=== PATIENT | male | born 1955 | race Two or more races ===

== ENCOUNTER 2017-03-24 09:46 | Emergency (ER) | payer MEDICARE ==
--- NOTE | 2017-03-24 10:19 | ER Document Report ---
ED General - General Chief Complaint: Scrotal Pain, Acute Onset Stated Complaint: LEFT TESTICAL PAIN Time Seen by Provider: 03/24/17 10:07 Mode of Arrival: Ambulatory Information source: Patient Notes: 61 yr old male presents with complaitns of left scrotal pain swelling of 1 week duration. pt denies any fevers or chills. denies any flank pain . pt notes he is not sexually active TRAVEL OUTSIDE OF THE [place] IN LAST 30 DAYS: No - HPI Onset: Last week Onset/Duration: Persistent Quality of pain: Achy Severity: Mild Pain Level: 2 Associated symptoms: Other Exacerbated by: Other Relieved by: Denies Similar symptoms previously: No Recently seen / treated by doctor: No - Related Data Allergies/Adverse Reactions: cortisone [Cortisone] Allergy (Verified 03/24/17 10:10) Sulfa (Sulfonamide Antibiotics) Allergy (Verified 03/24/17 10:10) Past Medical History - Social History Smoking Status: Never Smoker Cigarette use (# per day): No Chew tobacco use (# tins/day): No Smoking Education Provided: No Frequency of alcohol use: Rare Drug Abuse: None Family History: Reviewed & Not Pertinent Patient has suicidal ideation: No Patient has homicidal ideation: No - Past Medical History Cardiac Medical History: Reports: Hx Hypertension Endocrine Medical History: Reports: Hx Diabetes Mellitus Type 1 Renal/ Medical History: Denies: Hx Peritoneal Dialysis Past Surgical History: Reports: Hx Orthopedic Surgery - Spinal fusion, Hx Vascular Surgery - Immunizations Hx Diphtheria, Pertussis, Tetanus Vaccination: Yes Review of Systems - Review of Systems Notes: REVIEW OF SYSTEMS: CONSTITUTIONAL : Denies fever, chills, or sweats. Denies recent illness. EENT: Denies eye, ear, throat, or mouth pain or symptoms. Denies nasal or sinus congestion or discharge. Denies throat, tongue, or mouth swelling or difficulty swallowing. CARDIOVASCULAR: Denies chest pain. Denies palpitations or racing or irregular heart beat. Denies ankle edema. RESPIRATORY: Denies cough, cold, or chest congestion. Denies shortness of breath, difficulty breathing, or wheezing. GASTROINTESTINAL: Denies abdominal pain or distention. Denies nausea, vomiting , or diarrhea. Denies blood in vomitus, stools, or per rectum. Denies black, tarry stools. Denies constipation. Admits to testicular pain GENITOURINARY: Denies difficulty urinating, painful urination, burning, frequency, blood in urine, or discharge. MUSCULOSKELETAL: Denies back or neck pain or stiffness. Denies joint pain or swelling. SKIN: Denies rash, lesions or sores. HEMATOLOGIC : Denies easy bruising or bleeding. LYMPHATIC: Denies swollen, enlarged glands. NEUROLOGICAL: Denies confusion or altered mental status. Denies passing out or loss of consciousness. Denies dizziness or lightheadedness. Denies headache. Denies weakness or paralysis or loss of use of either side. Denies problems with gait or speech. Denies sensory loss, numbness, or tingling. Denies seizures. PSYCHIATRIC: Denies anxiety or stress. Denies depression, suicidal ideation, or homicidal ideation. ALL OTHER SYSTEMS REVIEWED AND NEGATIVE. Dictation was performed using [email or web address] voice recognition software PHYSICAL EXAMINATION: GENERAL: Well-appearing, well-nourished and in no acute distress. HEAD: Atraumatic, normocephalic. EYES: Pupils equal round and reactive to light, extraocular movements intact, sclera anicteric, conjunctiva are normal. ENT: Nares patent, oropharynx clear without exudates. Moist mucous membranes. NECK: Normal range of motion, supple without lymphadenopathy LUNGS: Breath sounds clear to auscultation bilaterally and equal. No wheezes rales or rhonchi. HEART: Regular rate and rhythm without murmurs ABDOMEN: Soft, nontender, nondistended abdomen. No guarding, no rebound. No masses appreciated. There is tenderness on palpation of the left scrotal region with edema, cremaster reflexes intact bilateral Musculoskeletal: Normal range of motion, no pitting or edema. No cyanosis. NEUROLOGICAL: Cranial nerves grossly intact. Normal speech, normal gait. Normal sensory, motor exams PSYCH: Normal mood, normal affect. SKIN: Warm, Dry, normal turgor, no rashes or lesions noted. Physical Exam - Vital signs Vitals: Temp Pulse Resp BP Pulse Ox 98.4 F 93 23 H 112/71 98 03/24/17 09:49 03/24/17 09:49 03/24/17 09:49 03/24/17 09:49 03/24/17 09:49 Course - Re-evaluation Re-evalutation: 03/24/17 10:30 Patient will be sent emergently for an ultrasound, urinalysis pending 03/24/17 12:08 Ultrasound is consistent with epididymitis, debris is noted on ultrasound. Patient will be started on antibiotics otherwise well-appearing no distress I will give follow-up with urology After performing a Medical Screening Examination, I estimate there is LOW risk for ACUTE APPENDICITIS, BOWEL OBSTRUCTION, ACUTE CHOLECYSTITIS, PERFORATED DIVERTICULITIS, INCARCERATED HERNIA, PANCREATITIS, or PERFORATED ULCER, thus I consider the discharge disposition reasonable. Also, there is no evidence or peritonitis, sepsis, or toxicity. I have reevaluated this patient multiple times and no significant life threatening changes are noted. The patient and I have discussed the diagnosis and risks, and we agree with discharging home with close follow-up with the understanding that symptoms and presentations can change. We also discussed returning to the Emergency Department immediately if new or worsening symptoms occur. We have discussed the symptoms which are most concerning (e.g., bloody stool, fever, changing or worsening pain, intractable vomiting - standard verbal up date) that necessitate immediate return. - Vital Signs Vital signs: Temp Pulse Resp BP Pulse Ox 98.4 F 93 23 H 112/71 98 03/24/17 09:49 03/24/17 09:49 03/24/17 09:49 03/24/17 09:49 03/24/17 09:49 - Laboratory Laboratory results interpreted by me: 03/24/17 11:20 Urine Protein 30 H Urine Glucose (UA) >=500 H Urine Blood MODERATE H - Diagnostic Test Radiology reviewed: Image reviewed, Reports reviewed - Report given to patient Discharge - Discharge Clinical Impression: Epididymitis, Scrotal pain Condition: Stable Disposition: HOME, SELF-CARE Instructions: Epididymitis ([facility]) Prescriptions: Hydrocodone/Acetaminophen [[place] 5-325 mg Tablet] 1 tab PO Q6 #14 tablet Levofloxacin [Levaquin 750 mg Tablet] 750 mg PO DAILY #14 tablet Referrals: VIGNESH MEADE MD [Primary Care Provider] - Follow up as needed LUCINDA DUNN MD [ACTIVE STAFF] - Follow up tomorrow
[2017-03-24] MEDS ORDERED: HYDROCODONE/ACETAMINOPHEN 5-325 MG TABLET PO ONE (10:20)
--- NOTE | 2017-03-24 11:49 | RADIOLOGY REPORT (SQ) ---
EXAM DESCRIPTION: U/S SCROTUM W/DOPPLER COMPLETED DATE/TIME: 03/24/2017 11:19 am REASON FOR STUDY: testicular pain COMPARISON: None. TECHNIQUE: Static and realtime hall scale imaging of the scrotum and testes. Selected color Doppler and spectral images recorded to document blood flow. LIMITATIONS: None. FINDINGS: RIGHT: TESTICLE: Normal size, 4.1 x 3.1 x 2.9 cm in size. Normal echotexture. Normal blood flow. No mass. EPIDIDYMIS: Epididymal head is normal aside from a 4 mm cyst. The epididymal tail is enlarged and he terogeneous question epididymitis. HYDROCELE OR VARICOCELE: Large right hydrocele. No varicocele HERNIA OR EXTRA-TESTICULAR MASS: No. OTHER: No other significant finding. LEFT: TESTICLE: Normal size, 3.5 x 2.8 x 3 cm in size. Normal echotexture. Normal blood flow. No mass. EPIDIDYMIS: Epididymal head is normal aside from a 4 mm cyst. The epididymal tail is enlarged and he terogeneous, question epididymitis. HYDROCELE OR VARICOCELE: Large left hydrocele. No varicocele HERNIA OR EXTRA-TESTICULAR MASS: No. OTHER: No other significant finding. IMPRESSION: Bilateral hydroceles Heterogeneous enlarged epididymal tails bilaterally, question epididymal inflammation/infection No ultrasound evidence of testicular torsion TECHNICAL DOCUMENTATION: JOB ID: [id number]- All Rights Reserved
[2017-03-24 11:58] LABS: APPEARANCE,URINE CLEAR; BILIRUBIN,URINE NEGATIVE (NEGATIVE); GLUCOSE, URINE >=500 mg/dL (NEGATIVE); KETONES,URINE NEGATIVE (NEGATIVE); LEUKOCYTE ESTERASE,URINE NEGATIVE (NEGATIVE); NITRITE,URINE NEGATIVE (NEGATIVE); PROTEIN,URINE 30 mg/dL (NEGATIVE); URINE SPECIFIC GRAVITY 1.028; UROBILINOGEN,URINE NEGATIVE mg/dL (<2.0)
[2017-03-24 12:17] VITALS: BP 127/74
[2017-03-24 14:31] LABS: CHLAM PCR NOT DETECTED (NOT DETECT)
== END 2017-03-24 12:15 | disposition home or self-care (01) ==
LOC: ER 09:46
DX: N45.1 Epididymitis (principal); N50.82 Scrotal pain; N50.89 Other specified disorders of the male genital organs
CPT/HCPCS: 99284; 81001; 87491; 87591; 76870; 93976; A9270

== ENCOUNTER 2018-07-12 13:45 | Emergency (ER) | payer MEDICARE ==
[2018-07-12] MEDS ORDERED: ASPIRIN 81 MG TABLET, CHEWABLE PO ONE (15:18)
--- NOTE | 2018-07-12 15:21 | ER Document Report ---
ED Medical Screen (RME) - General Chief Complaint: Chest Pain Stated Complaint: CHEST PAIN Time Seen by Provider: 07/12/18 15:09 Notes: 62-year-old male patient with hypertension, hyperlipidemia, insulin diabetes comes emerged from complaining of chest pain, difficulty breathing, dizzy sensation and left arm pain. He has been moving which involves moving furniture for the past few days. He did feel poorly "the other day", took 3 baby aspirin. He felt similarly unwell this morning and his gave him one baby aspirin at 8:30 AM. About 12:20 PM today, he developed a sternal squeezing chest discomfort going down the left arm. His gave him 1 of her nitroglycerin at 1230 it did not help. At 1245 he took an additional nitroglycerin without any change in symptoms. At that point they decided to come to the emergency room. He states the discomfort he has felt today comes and goes. He also reports feeling disoriented. Due to his past medical history and HPI, the charge nurse was contacted to get the patient a bed in the main ED as quickly as possible. I have greeted and performed a rapid initial assessment of this patient. A comprehensive ED assessment and evaluation of the patient, analysis of test results and completion of the medical decision making process will be conducted by additional ED providers. TRAVEL OUTSIDE OF THE [place] IN LAST 30 DAYS: No - Related Data Allergies/Adverse Reactions: cortisone [Cortisone] Allergy (Verified 07/12/18 13:49) Sulfa (Sulfonamide Antibiotics) Allergy (Verified 07/12/18 13:49) Past Medical History - Social History Chew tobacco use (# tins/day): No Frequency of alcohol use: Rare - Past Medical History Cardiac Medical History: Reports: Hx Hypertension Endocrine Medical History: Reports: Hx Diabetes Mellitus Type 1, Hx Diabetes Mellitus Type 2 Renal/ Medical History: Denies: Hx Peritoneal Dialysis Past Surgical History: Reports: Hx Orthopedic Surgery - Spinal fusion, Hx Vascular Surgery - Immunizations Hx Diphtheria, Pertussis, Tetanus Vaccination: Yes Physical Exam - Vital signs Vitals: Temp Pulse Resp BP Pulse Ox 98.1 F 80 16 123/69 97 07/12/18 14:09 07/12/18 14:09 07/12/18 14:09 07/12/18 14:09 07/12/18 14:09 Course - Vital Signs Vital signs: Temp Pulse Resp BP Pulse Ox 98.1 F 80 16 123/69 97 07/12/18 14:09 07/12/18 14:09 07/12/18 14:09 07/12/18 14:09 07/12/18 14:09 Doctor's Discharge - Discharge Referrals: VIGNESH MEADE MD [Primary Care Provider] - Follow up as needed
[2018-07-12 16:23] LABS: ABSOLUTE BASOPHILS # (AUTO) 0.1 10^3/uL (0.0-0.2); ABSOLUTE EOSINOPHILS # (AUTO) 0.1 10^3/uL (0.0-0.6); ABSOLUTE LYMPHOCYTES (AUTO) 1.5 10^3/uL (0.5-4.7); ABSOLUTE MONOCYTES (AUTO) 0.7 10^3/uL (0.1-1.4); ABSOLUTE NEUT (AUTO) 6.3 10^3/uL (1.7-8.2); BASOPHILS % (AUTO) 0.6 % (0-2); EOSINOPHILS % (AUTO) 0.6 % (0-6); HEMATOCRIT 43.4 % (37.9-51.0); HEMOGLOBIN 14.7 g/dL (13.5-17.0); LYMPHOCYTES % (AUTO) 17.3 % (13-45); MEAN CORPUSCULAR HEMOGLOBIN 28.8 pg (27.0-33.4); MEAN CORPUSCULAR HGB CONC 33.8 g/dL (32.0-36.0); MEAN CORPUSCULAR VOLUME 85 fl (80-97); PLATELET COUNT 261 10^3/uL (150-450); RED BLOOD COUNT 5.11 10^6/uL (4.35-5.55); RED CELL DISTRIBUTION WIDTH 13.9 % (11.5-14.0); SEGMENTED NEUTROPHILS % (AUTO) 73.5 % (42-78); TOTAL CELLS COUNTED % (AUTO) 100 %; WHITE BLOOD COUNT 8.6 10^3/uL (4.0-10.5)
[2018-07-12 16:31] LABS: APPEARANCE,URINE CLOUDY; BILIRUBIN,URINE NEGATIVE (NEGATIVE); COLOR,URINE YELLOW; GLUCOSE, URINE >=500 mg/dL (NEGATIVE); KETONES,URINE NEGATIVE (NEGATIVE); LEUKOCYTE ESTERASE,URINE SMALL (NEGATIVE); NITRITE,URINE NEGATIVE (NEGATIVE); PROTEIN,URINE 30 mg/dL (NEGATIVE); URINE SPECIFIC GRAVITY 1.022
--- NOTE | 2018-07-12 16:34 | RADIOLOGY REPORT (SQ) ---
EXAM DESCRIPTION: CHEST SINGLE VIEW COMPLETED DATE/TIME: 07/12/2018 4:21 pm REASON FOR STUDY: Chest pain COMPARISON: 12/02/2015. EXAM PARAMETERS: NUMBER OF VIEWS: One view. TECHNIQUE: Single frontal radiographic view of the chest acquired. RADIATION DOSE: NA LIMITATIONS: None. FINDINGS: LUNGS AND PLEURA: No acute infiltrates or effusions. MEDIASTINUM AND HILAR STRUCTURES: No masses. Contour normal. HEART AND VASCULAR STRUCTURES: The heart is normal. The pulmonary vasculature is normal. BONES: Postsurgical changes cervical spine. HARDWARE: None in the chest. OTHER: No other significant finding. IMPRESSION: NO ACUTE DISEASE. TECHNICAL DOCUMENTATION: JOB ID: [id number] [employer]- All Rights Reserved Reading location - IP/workstation name: [email or web address]
[2018-07-12 16:44] LABS: ALANINE AMINOTRANSFERASE 28 U/L (21-72); ALBUMIN 4.4 g/dL (3.5-5.0); ALKALINE PHOSPHATASE 79 U/L (38-126); ANION GAP 14 (5-19); ASPARTATE AMINO TRANSFERASE 33 U/L (17-59); BILIRUBIN,DIRECT 0.2 mg/dL (0.0-0.4); BILIRUBIN,TOTAL 0.6 mg/dL (0.2-1.3); BLOOD UREA NITROGEN 16 mg/dL (7-20); CALCIUM 9.8 mg/dL (8.4-10.2); CARBON DIOXIDE 28 mmol/L (22-30); CHLORIDE 101 mmol/L (98-107); CREATINE KINASE 594 U/L (55-170); GLUCOSE 83 mg/dL (75-110); POTASSIUM 4.4 mmol/L (3.6-5.0); SODIUM 142.5 mmol/L (137-145); TOTAL PROTEIN 7.6 g/dL (6.3-8.2)
[2018-07-12 16:56] LABS: CREATINE KINASE MB 6.56 ng/mL (<4.55)
[2018-07-12 17:02] LABS: TROPONIN I < 0.012 ng/mL
[2018-07-12] MEDS ORDERED: HEPARIN SOD (PORCINE) 1,000 UNIT/ML 10 ML VIAL IV ONE (17:05)
[2018-07-12] MEDS ORDERED: HEPARIN SODIUM,PORCINE/D5W 25,000 UNIT/250 ML RTUINJ IV PRN (17:05)
[2018-07-12] MEDS ORDERED: NITROGLYCERIN 2% OINTMENT 1 GM PACKET TP ONE (17:05)
--- NOTE | 2018-07-12 17:11 | ER Document Report ---
ED Cardiac - General Chief Complaint: Chest Pain Stated Complaint: CHEST PAIN Time Seen by Provider: 07/12/18 15:09 Notes: This is a 62-year-old male. Presents to the ED after 1 hour history of sudden onset of chest pressure, shortness of breath and diaphoresis. Patient was doing some heavy lifting. All of a sudden developed chest pain. Radiated to his left shoulder. Kinsey like he was going to throw up. His who has had a heart attack gave him some of her nitro. This seemed to help. The pain came back. She gave him another nitro. Patient decided he should probably come to the hospital to get checked out. Patient has obesity, history of hyperlipidemia as well as hypertension and diabetes. Recently started going to see her doctor again once he got on Medicare. Patient does not smoke but did smoke 20 years ago. TRAVEL OUTSIDE OF THE [place] IN LAST 30 DAYS: No - HPI Patient complains to provider of: Chest pain, Chest tightness, Shortness of breath Was the onset of pain: Sudden Quality of pain: Dull Chest pain radiation location: Left shoulder Severity now: Moderate Severity at worst: Severe Pain level currently: 1 Chest pain precipitating factors: Physical Exertion Cardiac risk factors: Diabetes, Hypertension, Dyslipidemia Associated symptoms: Diaphoresis, Dizziness, Jaw pain, Nausea/vomiting, Shortness of breath, Weakness Relieved by: NTG Similar symptoms previously: No Recently seen / treated by doctor: No - Related Data Allergies/Adverse Reactions: cortisone [Cortisone] Allergy (Verified 07/12/18 13:49) Sulfa (Sulfonamide Antibiotics) Allergy (Verified 07/12/18 13:49) Past Medical History - General Information source: Patient - Social History Smoking Status: Former Smoker Chew tobacco use (# tins/day): No Frequency of alcohol use: Rare Lives with: Spouse/Significant other Family History: Reviewed & Not Pertinent Patient has suicidal ideation: No Patient has homicidal ideation: No - Past Medical History Cardiac Medical History: Reports: Hx Hypertension Endocrine Medical History: Reports: Hx Diabetes Mellitus Type 1, Hx Diabetes Mellitus Type 2 Renal/ Medical History: Denies: Hx Peritoneal Dialysis Past Surgical History: Reports: Hx Orthopedic Surgery - Spinal fusion, Hx Vascular Surgery - Immunizations Hx Diphtheria, Pertussis, Tetanus Vaccination: Yes Review of Systems - Review of Systems Notes: Constitutional: denies: Chills, Diaphoresis, Fever, Malaise, Weakness EENT: denies: Eye discharge, Blurred vision, Tearing, Double vision, Nose congestion, Nose discharge, Throat swelling, Mouth pain Cardiovascular: It is complaining of chest pain, chest tightness, shortness of breath, lower extremity edema. Respiratory: denies: Cough, Hurts to breathe, Wheezing,. Does complain of shortness of breath Gastrointestinal: denies: Abdominal pain, Diarrhea, Nausea, Vomiting, Black stools, bright red blood in stool Genitourinary: denies: Burning, Dysuria, Discharge, Frequency, Flank pain, Hematuria Musculoskeletal: denies: Joint pain, Joint swelling, Muscle pain, Muscle stiffness, back pain Hematologic/Lymphatic: denies: Anemia, Easy bleeding, Easy bruising, Blood clots Neurological/Psychological: denies: Confusion, Dementia, Depression, Loss of consciousness Skin: No lesions, no masses, no skin breakdown, no abscesses Physical Exam - Vital signs Vitals: Temp Pulse Resp BP Pulse Ox 98.1 F 80 16 123/69 97 07/12/18 14:09 07/12/18 14:09 07/12/18 14:09 07/12/18 14:09 07/12/18 14:09 Interpretation: Normal - General General appearance: Appears well, Alert - HEENT Head: Normocephalic, Atraumatic Eyes: Normal Pupils: PERRL - Respiratory Respiratory status: No respiratory distress Chest status: Nontender Breath sounds: Normal Chest palpation: Normal - Cardiovascular Rhythm: Regular Heart sounds: Normal auscultation Murmur: No - Abdominal Inspection: Normal Distension: No distension Bowel sounds: Normal Tenderness: Nontender Organomegaly: No organomegaly - Back Back: Normal, Nontender - Extremities General upper extremity: Normal inspection, Nontender, Normal color, Normal ROM , Normal temperature General lower extremity: Normal inspection, Nontender, Normal color, Normal ROM , Normal temperature, Normal weight bearing. No: Chao's sign - Neurological Neuro grossly intact: Yes Cognition: Normal Orientation: AAOx4 [place] Coma Scale Eye Opening: Spontaneous [place] Coma Scale Verbal: Oriented [place] Coma Scale Motor: Obeys Commands [place] Coma Scale Total: 15 Speech: Normal Motor strength normal: LUE, RUE, LLE, RLE Sensory: Normal - Psychological Associated symptoms: Normal affect, Normal mood - Skin Skin Temperature: Warm Skin Moisture: Dry Skin Color: Normal Course - Re-evaluation Re-evalutation: 07/12/18 17:09 Patient had a concerning EKG. Repeat EKG was performed. Did have a little bit of ST elevation however when looking at it closer with the solar site assessment specialist is probably more likely a overlap of the T wave and the QRS complex making it looks slightly elevated. Regardless patient does have a very convincing story. He did have exertional chest pain relieved with nitro and he does have an elevated CK-MB so more likely patient is having acute coronary syndrome. Discussed with Dr. Valentin at [facility]. He has accepted the patient. We will transfer him at this time. He does recommend starting him on a heparin drip. 07/12/18 19:35 Laboratory 07/12/18 07/12/18 07/12/18 16:08 16:08 16:08 WBC 8.6 RBC 5.11 Hgb 14.7 Hct 43.4 MCV 85 MCH 28.8 MCHC 33.8 RDW 13.9 Plt Count 261 Seg Neutrophils % 73.5 Lymphocytes % 17.3 Monocytes % 8.0 Eosinophils % 0.6 Basophils % 0.6 Absolute Neutrophils 6.3 Absolute Lymphocytes 1.5 Absolute Monocytes 0.7 Absolute Eosinophils 0.1 Absolute Basophils 0.1 PT INR APTT Sodium 142.5 Potassium 4.4 Chloride 101 Carbon Dioxide 28 Anion Gap 14 BUN 16 Creatinine 0.70 Est GFR ( Amer) > 60 Est GFR (Non-Af Amer) > 60 Glucose 83 Hemoglobin A1c % 8.8 H Calcium 9.8 Magnesium 2.1 Total Bilirubin 0.6 Direct Bilirubin 0.2 Neonat Total Bilirubin Not Reportable Neonat Direct Bilirubin Not Reportable Neonat Indirect Bili Not Reportable AST 33 ALT 28 Alkaline Phosphatase 79 Creatine Kinase 594 H CK-MB (CK-2) Troponin I Total Protein 7.6 Albumin 4.4 Urine Color Urine Appearance Urine pH Ur Specific [place] Urine Protein Urine Glucose (UA) Urine Ketones Urine Blood Urine Nitrite Urine Bilirubin Urine Urobilinogen Ur Leukocyte Esterase Urine WBC (Auto) Urine RBC (Auto) U Hyaline Cast (Auto) Urine Bacteria (Auto) Squamous Epi Cells Auto Urine Mucus (Auto) Urine Ascorbic Acid 07/12/18 07/12/18 07/12/18 16:08 16:08 16:08 WBC RBC Hgb Hct MCV MCH MCHC RDW Plt Count Seg Neutrophils % Lymphocytes % Monocytes % Eosinophils % Basophils % Absolute Neutrophils Absolute Lymphocytes Absolute Monocytes Absolute Eosinophils Absolute Basophils PT 12.6 INR 0.90 APTT 29.7 Sodium Potassium Chloride Carbon Dioxide Anion Gap BUN Creatinine Est GFR ( Amer) Est GFR (Non-Af Amer) Glucose Hemoglobin A1c % Calcium Magnesium Total Bilirubin Direct Bilirubin Neonat Total Bilirubin Neonat Direct Bilirubin Neonat Indirect Bili AST ALT Alkaline Phosphatase Creatine Kinase CK-MB (CK-2) 6.56 H Troponin I < 0.012 Total Protein Albumin Urine Color YELLOW Urine Appearance CLOUDY Urine pH 5.0 Ur Specific [place] 1.022 Urine Protein 30 H Urine Glucose (UA) >=500 H Urine Ketones NEGATIVE Urine Blood SMALL H Urine Nitrite NEGATIVE Urine Bilirubin NEGATIVE Urine Urobilinogen 4.0 H Ur Leukocyte Esterase SMALL H Urine WBC (Auto) 5 Urine RBC (Auto) 2 U Hyaline Cast (Auto) 4 Urine Bacteria (Auto) TRACE Squamous Epi Cells Auto 5 Urine Mucus (Auto) MANY Urine Ascorbic Acid NEGATIVE 07/12/18 07/12/18 18:45 18:45 WBC RBC Hgb Hct MCV MCH MCHC RDW Plt Count Seg Neutrophils % Lymphocytes % Monocytes % Eosinophils % Basophils % Absolute Neutrophils Absolute Lymphocytes Absolute Monocytes Absolute Eosinophils Absolute Basophils PT INR APTT Sodium Potassium Chloride Carbon Dioxide Anion Gap BUN Creatinine Est GFR ( Amer) Est GFR (Non-Af Amer) Glucose Hemoglobin A1c % Calcium Magnesium Total Bilirubin Direct Bilirubin Neonat Total Bilirubin Neonat Direct Bilirubin Neonat Indirect Bili AST ALT Alkaline Phosphatase Creatine Kinase 515 H CK-MB (CK-2) 6.31 H Troponin I < 0.012 Total Protein Albumin Urine Color Urine Appearance Urine pH Ur Specific [place] Urine Protein Urine Glucose (UA) Urine Ketones Urine Blood Urine Nitrite Urine Bilirubin Urine Urobilinogen Ur Leukocyte Esterase Urine WBC (Auto) Urine RBC (Auto) U Hyaline Cast (Auto) Urine Bacteria (Auto) Squamous Epi Cells Auto Urine Mucus (Auto) Urine Ascorbic Acid Chest X-Ray 07/12/18 15:18 IMPRESSION: NO ACUTE DISEASE. - Vital Signs Vital signs: Temp Pulse Resp BP Pulse Ox 98.1 F 80 9 L 121/76 98 07/12/18 14:09 07/12/18 14:09 07/12/18 19:01 07/12/18 19:00 07/12/18 19:01 - Laboratory Result Diagrams: 07/12/18 16:08 07/12/18 16:08 Laboratory results interpreted by me: 07/12/18 07/12/18 07/12/18 16:08 16:08 16:08 Hemoglobin A1c % 8.8 H Creatine Kinase 594 H CK-MB (CK-2) 6.56 H Urine Protein Urine Glucose (UA) Urine Blood Urine Urobilinogen Ur Leukocyte Esterase 07/12/18 07/12/18 07/12/18 16:08 18:45 18:45 Hemoglobin A1c % Creatine Kinase 515 H CK-MB (CK-2) 6.31 H Urine Protein 30 H Urine Glucose (UA) >=500 H Urine Blood SMALL H Urine Urobilinogen 4.0 H Ur Leukocyte Esterase SMALL H - EKG Interpretation by Me EKG shows normal: Sinus rhythm, [place], QRS Complexes, ST-T Waves [place]/QRS: RBBB Critical Care Note - Critical Care Note Total time excluding time spent on procedures (mins): 60 Comments: Acute coronary syndrome, consultation with specialist, coordination of transfer of care. Discharge - Discharge Clinical Impression: Acute coronary syndrome Condition: Good Disposition: [facility] Referrals: VIGNESH MEADE MD [Primary Care Provider] - Follow up as needed
[2018-07-12] MEDS ORDERED: HEPARIN SODIUM,PORCINE/D5W 25,000 UNIT/250 ML RTUINJ IV ONE (17:18)
[2018-07-12 17:23] LABS: PROTHROMBIN TIME 12.6 SEC (11.4-15.4)
[2018-07-12 17:24] LABS: PARTIAL THROMBOPLASTIN TIME 29.7 SEC (23.5-35.8)
[2018-07-12] MEDS ORDERED: METOPROLOL TARTRATE PF/INJ 5 MG/5 ML SDV IV ONE (17:32)
--- NOTE | 2018-07-12 19:17 | EKG REPORT ---
SEVERITY:- ABNORMAL ECG - SINUS RHYTHM VENTRICULAR PREMATURE COMPLEX FIRST DEGREE AV BLOCK RIGHT BUNDLE BRANCH BLOCK PROBABLE INFERIOR INFARCT, AGE INDETERMINATE LATERAL INFARCT, AGE INDETERMINATE : Confirmed by: Yesenia Amaro MD 12-Jul-2018 19:16:47
--- NOTE | 2018-07-12 19:17 | EKG REPORT ---
SEVERITY:- ABNORMAL ECG - SINUS RHYTHM FIRST DEGREE AV BLOCK RIGHT BUNDLE BRANCH BLOCK PROBABLE INFERIOR INFARCT, AGE INDETERMINATE : Confirmed by: Yesenia Amaro MD 12-Jul-2018 19:16:58
[2018-07-12 19:30] LABS: CREATINE KINASE MB 6.31 ng/mL (<4.55)
[2018-07-12 19:34] LABS: TROPONIN I < 0.012 ng/mL
[2018-07-12] MEDS ORDERED: HEPARIN SOD (PORCINE) 1,000 UNIT/ML 10 ML VIAL IV PRN (20:05)
[2018-07-12 20:12] VITALS: BP 112/71
== END 2018-07-12 19:51 | disposition short-term general hospital (02) ==
LOC: ER 13:45
DX: I24.9 Acute ischemic heart disease, unspecified (principal); R07.9 Chest pain, unspecified; R06.02 Shortness of breath; R61 Generalized hyperhidrosis; M25.512 Pain in left shoulder; R42 Dizziness and giddiness; R68.84 Jaw pain; R11.2 Nausea with vomiting, unspecified; R53.1 Weakness; X50.0XXA Overexertion from strenuous movement or load, initial encounter; Z87.891 Personal history of nicotine dependence; I10 Essential (primary) hypertension; E11.9 Type 2 diabetes mellitus without complications
CPT/HCPCS: 93005; 99291; 96365; 96366; 36415; 82553; 82550; 83735; 85025; 85610; 85730; 80053; 81001; 84484; 83036; 71045; 93010; J1644 ×2; A9270 ×2; J3490

== ENCOUNTER 2019-05-13 16:43 | Inpatient (IN) | payer MEDICARE, MEDICAID ==
--- NOTE | 2019-05-13 17:16 | ER Document Report ---
ED Medical Screen (RME) - General Chief Complaint: Puncture Wound to Foot Stated Complaint: WOUND ON FOOT Time Seen by Provider: 05/13/19 16:54 Primary Care Provider: VIGNESH MEADE MD [Primary Care Provider] - Follow up as needed Mode of Arrival: Wheelchair Information source: Patient Notes: Patient presents emergency department with wound to the bottom of his right foot. Reported he is unsure when it started because he had compression stockings on they changed him this morning noted that was blood with the sore. Patient has a large dark and necrotic area to the bottom of his right foot. He is a diabetic. I have greeted and performed a rapid initial assessment of this patient. A comprehensive ED assessment and evaluation of the patient, analysis of test results and completion of the medical decision making process will be conducted by additional ED providers. Dictation of this chart was performed using voice recognition software; therefore, there may be some unintended grammatical errors. TRAVEL OUTSIDE OF THE [place] IN LAST 30 DAYS: No - Related Data Allergies/Adverse Reactions: cortisone [Cortisone] Allergy (Verified 05/13/19 17:09) Sulfa (Sulfonamide Antibiotics) Allergy (Verified 05/13/19 17:09) Past Medical History - Social History Chew tobacco use (# tins/day): No Frequency of alcohol use: None - Past Medical History Cardiac Medical History: Reports: Hx Hypertension Endocrine Medical History: Reports: Hx Diabetes Mellitus Type 1, Hx Diabetes Mellitus Type 2 Renal/ Medical History: Denies: Hx Peritoneal Dialysis Past Surgical History: Reports: Hx Orthopedic Surgery - Spinal fusion, Hx Vascular Surgery - Immunizations Hx Diphtheria, Pertussis, Tetanus Vaccination: Yes Physical Exam - Vital signs Vitals: Temp Pulse Resp BP Pulse Ox 99.2 F 81 16 114/63 95 05/13/19 16:50 05/13/19 16:50 05/13/19 16:50 05/13/19 16:50 05/13/19 16:50 Course - Vital Signs Vital signs: Temp Pulse Resp BP Pulse Ox 99.2 F 81 16 114/63 95 05/13/19 16:50 05/13/19 16:50 05/13/19 16:50 05/13/19 16:50 05/13/19 16:50 Doctor's Discharge - Discharge Referrals: MEADE,SWETANG, MD [Primary Care Provider] - Follow up as needed
[2019-05-13 18:02] LABS: ABSOLUTE EOSINOPHILS # (AUTO) 0.3 10^3/uL (0.0-0.6); ABSOLUTE LYMPHOCYTES (AUTO) 1.2 10^3/uL (0.5-4.7); ABSOLUTE MONOCYTES (AUTO) 0.7 10^3/uL (0.1-1.4); ABSOLUTE NEUT (AUTO) 6.6 10^3/uL (1.7-8.2); BASOPHILS % (AUTO) 0.4 % (0-2); EOSINOPHILS % (AUTO) 3.3 % (0-6); HEMATOCRIT 34.6 % (37.9-51.0); HEMOGLOBIN 11.6 g/dL (13.5-17.0); LYMPHOCYTES % (AUTO) 13.7 % (13-45); MEAN CORPUSCULAR HEMOGLOBIN 28.3 pg (27.0-33.4); MEAN CORPUSCULAR HGB CONC 33.4 g/dL (32.0-36.0); MEAN CORPUSCULAR VOLUME 85 fl (80-97); PLATELET COUNT 339 10^3/uL (150-450); RED BLOOD COUNT 4.09 10^6/uL (4.35-5.55); RED CELL DISTRIBUTION WIDTH 14.3 % (11.5-14.0); SEGMENTED NEUTROPHILS % (AUTO) 74.6 % (42-78); TOTAL CELLS COUNTED % (AUTO) 100 %; WHITE BLOOD COUNT 8.8 10^3/uL (4.0-10.5)
--- NOTE | 2019-05-13 18:09 | RADIOLOGY REPORT (SQ) ---
EXAM DESCRIPTION: FOOT RIGHT COMPLETE COMPLETED DATE/TIME: 05/13/2019 5:45 pm REASON FOR STUDY: diabetic, foot wound COMPARISON: None. NUMBER OF VIEWS: Three views. TECHNIQUE: AP, lateral and oblique radiographic images acquired of the right foot. LIMITATIONS: None. FINDINGS: MINERALIZATION: Normal. BONES: No acute fracture or dislocation. No worrisome bone lesions. JOINTS: No effusions. SOFT TISSUES: No soft tissue swelling. No foreign body. OTHER: No other significant finding. IMPRESSION: NEGATIVE STUDY OF THE RIGHT FOOT. NO RADIOGRAPHIC EVIDENCE OF ACUTE INJURY. TECHNICAL DOCUMENTATION: JOB ID: [id number] [employer]- All Rights Reserved Reading location - IP/workstation name: [email or web address]
[2019-05-13 18:17] LABS: ALBUMIN 3.5 g/dL (3.5-5.0); ALKALINE PHOSPHATASE 58 U/L (38-126); ANION GAP 7 (5-19); ASPARTATE AMINO TRANSFERASE 23 U/L (17-59); BILIRUBIN,DIRECT 0.1 mg/dL (0.0-0.4); BILIRUBIN,TOTAL 0.5 mg/dL (0.2-1.3); BLOOD UREA NITROGEN 16 mg/dL (7-20); CALCIUM 9.1 mg/dL (8.4-10.2); CARBON DIOXIDE 29 mmol/L (22-30); CHLORIDE 102 mmol/L (98-107); GLUCOSE 137 mg/dL (75-110); POTASSIUM 4.4 mmol/L (3.6-5.0); TOTAL PROTEIN 6.7 g/dL (6.3-8.2)
[2019-05-13] MEDS ORDERED: PIPERACILLIN/TAZOBACTAM 3.375 GM VIAL IV ONE (18:29)
--- NOTE | 2019-05-13 18:43 | ER Document Report ---
ED Wound - General Chief Complaint: Puncture Wound to Foot Stated Complaint: WOUND ON FOOT Time Seen by Provider: 05/13/19 16:54 Mode of Arrival: Wheelchair Information source: Patient Notes: Patient presents complaining of right foot pain and swelling that he noticed today. Patient states that he does have diabetes and is unable to see the bottom of his foot. Patient states that he noticed blood on his compression stockings. Patient denies any elevation in his blood sugar. Patient denies any fever. Patient denies any known trauma to the foot. TRAVEL OUTSIDE OF THE [place] IN LAST 30 DAYS: No - HPI Patient complains to provider of: Wound infection Occurred: This morning Onset/Duration: Gradual Quality of pain: Achy Pain Level: 1 Skin Color: Blackened Associated Symptoms: Redness, Swelling - Related Data Allergies/Adverse Reactions: cortisone [Cortisone] Allergy (Verified 05/13/19 17:09) Sulfa (Sulfonamide Antibiotics) Allergy (Verified 05/13/19 17:09) Past Medical History - General Information source: Patient - Social History Smoking Status: Never Smoker Chew tobacco use (# tins/day): No Frequency of alcohol use: None Drug Abuse: None Lives with: Spouse/Significant other Family History: Reviewed & Not Pertinent Patient has suicidal ideation: No Patient has homicidal ideation: No - Past Medical History Cardiac Medical History: Reports: Hx Hypercholesterolemia, Hx Hypertension Endocrine Medical History: Reports: Hx Diabetes Mellitus Type 1 Renal/ Medical History: Denies: Hx Peritoneal Dialysis Past Surgical History: Reports: Hx Coronary Artery Bypass Graft, Hx Orthopedic Surgery - Spinal fusion, Hx Vascular Surgery - Immunizations Hx Diphtheria, Pertussis, Tetanus Vaccination: Yes Review of Systems - Review of Systems Constitutional: No symptoms reported. denies: Fever EENT: No symptoms reported Cardiovascular: No symptoms reported Respiratory: No symptoms reported Gastrointestinal: No symptoms reported. denies: Nausea, Vomiting Genitourinary: No symptoms reported Male Genitourinary: No symptoms reported Musculoskeletal: No symptoms reported Skin: Other - Blackened area to plantar surface of right foot Hematologic/Lymphatic: No symptoms reported Neurological/Psychological: No symptoms reported Physical Exam - Vital signs Vitals: Temp Pulse Resp BP Pulse Ox 99.2 F 81 16 114/63 95 05/13/19 16:50 05/13/19 16:50 05/13/19 16:50 05/13/19 16:50 05/13/19 16:50 - General General appearance: Appears well, Alert In distress: None - HEENT Head: Normocephalic, Atraumatic Eyes: Normal Conjunctiva: Normal Nasal: Normal Mouth/Lips: Normal Mucous membranes: Normal Neck: Normal, Supple - Respiratory Respiratory status: No respiratory distress Chest status: Nontender Breath sounds: Normal Chest palpation: Normal - Cardiovascular Rhythm: Regular Heart sounds: S1 appreciated, S2 appreciated Murmur: No - Abdominal Inspection: Morbidly Obese Tenderness: Nontender - Back Back: Normal, Nontender - Extremities General upper extremity: Normal inspection, Normal ROM General lower extremity: Nontender, Edema - Bilateral lower extremities, right worse than left, Normal ROM - Neurological Neuro grossly intact: Yes Cognition: Normal Samantha Coma Scale Eye Opening: Spontaneous [place] Coma Scale Verbal: Oriented [place] Coma Scale Motor: Obeys Commands Samantha Coma Scale Total: 15 - Psychological Associated symptoms: Normal affect, Normal mood - Skin Skin Temperature: Warm Skin Moisture: Dry Skin Color: Erythema - Mild erythema to right foot and right lower leg, Blackened - Plantar surface of the right foot under the fourth and fifth me tatarsal, darkened tissue under nail of right third toe Course - Re-evaluation Re-evalutation: 05/13/19 18:[address] White who agrees to evaluate patient. Agrees with plan for IV Zosyn at this time. Recommends that if patient requires admission that patient's primary doctor be the admitting physician at this time. Consulted with Dr. Gutierrez who recommends waiting for Doppler test results and then notifying him of the results prior to admitting patient at this time. 05/13/19 19:41 Preliminary Doppler reports resulted, patient negative for DVT. Patient does have some trickle flow to the posterior tibial artery to the right lower extremity but has good anterior tibial artery flow and good dorsalis pedis flow. Discussed these findings with Dr. Gutierrez who is agreeable with admission at this time. Dr. Del Rio does agree to be consulted on patient. - Vital Signs Vital signs: Temp Pulse Resp BP Pulse Ox 99.2 F 85 18 125/66 96 05/13/19 21:57 05/13/19 21:57 05/13/19 21:57 05/13/19 21:57 05/13/19 21:57 - Laboratory Result Diagrams: 05/13/19 17:34 05/13/19 17:34 Laboratory results interpreted by me: 05/13/19 05/13/19 17:34 17:34 RBC 4.09 L Hgb 11.6 L Hct 34.6 L RDW 14.3 H Glucose 137 H 05/13/19 19:42 Labs- Entire Visit 05/13/19 05/13/19 17:34 17:34 WBC 8.8 RBC 4.09 L Hgb 11.6 L Hct 34.6 L MCV 85 MCH 28.3 MCHC 33.4 RDW 14.3 H Plt Count 339 Lymph % (Auto) 13.7 Burke % (Auto) 8.0 Eos % (Auto) 3.3 Baso % (Auto) 0.4 Absolute Neuts (auto) 6.6 Absolute Lymphs (auto) 1.2 Absolute Monos (auto) 0.7 Absolute Eos (auto) 0.3 Absolute Basos (auto) 0.0 Seg Neutrophils % 74.6 Sodium 138.3 Potassium 4.4 Chloride 102 Carbon Dioxide 29 Anion Gap 7 BUN 16 Creatinine 0.88 Est GFR ( Amer) > 60 Est GFR (MDRD) Non-Af > 60 Glucose 137 H Calcium 9.1 Total Bilirubin 0.5 Direct Bilirubin 0.1 Neonat Total Bilirubin Not Reportable Neonat Direct Bilirubin Not Reportable Neonat Indirect Bili Not Reportable AST 23 ALT 14 Alkaline Phosphatase 58 Total Protein 6.7 Albumin 3.5 - Diagnostic Test Radiology reviewed: Reports reviewed Discharge - Discharge Clinical Impression: Diabetic foot infection Condition: Stable Disposition: ADMITTED INPATIENT Admitting Provider: Gutierrez Unit Admitted: Telemetry
[2019-05-13] MEDS ORDERED: ACETAMINOPHEN 325 MG TABLET PO PRN (19:42)
[2019-05-13] MEDS ORDERED: OXYCODONE-ACETAMINOPHEN 5-325 MG TABLET PO PRN (19:42)
[2019-05-13] MEDS ORDERED: DEXTROSE 50%-WATER 25 GM/50 ML DISP.SYRIN IV PRN ×2 (19:47)
[2019-05-13] MEDS ORDERED: GLUCAGON,HUMAN RECOMB 1 MG INJ IM PRN (19:47)
[2019-05-13] MEDS ORDERED: DEXTROSE 40% GEL 15 GM TUBE PO PRN ×2 (19:47)
--- NOTE | 2019-05-13 21:23 | PDOC CONSULTATION ---
Consultation Consult Date: 05/13/19 Provider Consulted: MIGUEL ANGEL Consult reason:: diabetic foot ulcer History of Present Illness Admission Date/PCP: 05/13/19 19:50 VIGNESH MEADE MD Patient complains of: right foot swelling History of Present Illness: KIA LOREDO is a 63 year old male diabetic who had 5 vessel coronary bypass in June 2018 followed a feww days later with Ablation for A Fib. Has been on Eliquis BID and added Amiodarone after ablation. Has been wearing compression stockings for both legs and about 4 days ago noted swelling of right foot. Today asked his to look at the bottom of the right foot because of some drainage. noted an ulcer and brought patient to ED.Had arterial/venous doppler right leg showed no DVT with some flow to the ankle arteries. Past Medical History Cardiac Medical History: Reports: Atrial Fibrillation, Myocardial Infarction, Hypertension Endocrine Medical History: Reports: Diabetes Mellitus Type 1, Diabetes Mellitus Type 2 Past Surgical History Past Surgical History: Reports: Coronary Artery Bypass Graft, Orthopedic Surgery - Spinal fusion, Vascular Surgery, Other - A Fib ablation Social History Smoking Status: Former Smoker Family History Family History: Reviewed & Not Pertinent Parental Family History Reviewed: Yes - no diabetes Children Family History Reviewed: No Sibling(s) Family History Reviewed.: No Medication/Allergy Home Medications: Amiodarone HCl [Cordarone 200 mg Tablet] 200 mg PO QHS 05/13/19 Apixaban [Eliquis 5 mg Tablet] 5 mg PO Q12 05/13/19 Aspirin [Lo-Dose Aspirin EC] 81 mg PO DAILY 05/13/19 Atorvastatin Calcium [Lipitor 40 mg Tablet] 40 mg PO DAILY 05/13/19 Furosemide [Lasix 20 mg Tablet] 20 mg PO QAM 05/13/19 Hum Insulin NPH/Reg Insulin Hm [Novolin 70-30 100 Unit/Ml Vial] 0 unit SQ .SLDSCALE 05/13/19 Lisinopril [Prinivil 2.5 mg Tablet] 2.5 mg PO DAILY 05/13/19 Metoprolol Tartrate [Lopressor 25 mg Tablet] 25 mg PO QHS 05/13/19 Potassium Chloride [Klor-Con 10 Meq Capsule ER] 10 meq PO DAILY 05/13/19 Allergies/Adverse Reactions: cortisone [Cortisone] Allergy (Verified 05/13/19 17:09) Sulfa (Sulfonamide Antibiotics) Allergy (Verified 05/13/19 17:09) Review of Systems Constitutional: PRESENT: as per HPI, other - no fever/chills Physical Exam Vital Signs: Temp Pulse Resp BP Pulse Ox 99.2 F 81 16 114/63 95 05/13/19 16:50 05/13/19 16:50 05/13/19 16:50 05/13/19 16:50 05/13/19 16:50 Intake & Output 05/12/19 05/13/19 05/14/19 06:59 06:59 06:59 Weight 170.2 kg General appearance: PRESENT: no acute distress Head exam: PRESENT: atraumatic Eye exam: PRESENT: conjunctiva pink Mouth exam: PRESENT: moist Neck exam: PRESENT: full ROM Respiratory exam: PRESENT: clear to auscultation xochitl Cardiovascular exam: PRESENT: RRR Pulses: PRESENT: normal radial pulses, other - palpable right RN CARDIOVASCULAR Vascular exam: PRESENT: normal capillary refill GI/Abdominal exam: PRESENT: soft Rectal exam: PRESENT: deferred Extremities exam: PRESENT: +1 edema, other - redness of swelling right foot and lower leg 3X5 cm dry scab on the lateral plantar aspect of the ball of right foot No obvious inflammation around it,non tender Skin exam: PRESENT: other - 3x5 cm dry scab right foot lateral plantar area Results Laboratory Results: 05/13/19 17:34 05/13/19 17:34 05/13/19 05/13/19 17:34 17:34 WBC 8.8 RBC 4.09 L Hgb 11.6 L Hct 34.6 L MCV 85 MCH 28.3 MCHC 33.4 RDW 14.3 H Plt Count 339 Seg Neutrophils % 74.6 Sodium 138.3 Potassium 4.4 Chloride 102 Carbon Dioxide 29 Anion Gap 7 BUN 16 Creatinine 0.88 Est GFR ( Amer) > 60 Glucose 137 H Calcium 9.1 Total Bilirubin 0.5 AST 23 Alkaline Phosphatase 58 Total Protein 6.7 Albumin 3.5 Impressions: Foot X-Ray 05/13/19 17:16 IMPRESSION: NEGATIVE STUDY OF THE RIGHT FOOT. NO RADIOGRAPHIC EVIDENCE OF ACUTE INJURY. Assessment & Plan - Diagnosis (1) Diabetic foot infection Is this a current diagnosis for this admission?: Yes - Time Time Spent: 30 to 50 Minutes - Inpatient Certification Medical Necessity: Need for IV Antibiotics - Plan Summary Plan Summary: Start IV antibiotics The scab area is dry. Not necessarily need debridement at this time. Will need to be off Eliquis 24-48 hrs prior to debridement Has redness dorsum of right foot and lower leg due to cellulitis. Will follow patient with you. Needs cardiology consultation to temporarily stop Eliquis
[2019-05-13] MEDS ORDERED: APIXABAN 5 MG TABLET PO SCH (22:00)
[2019-05-13] MEDS: METOPROLOL TARTRATE 25 MG TABLET PO SCH (22:20)
[2019-05-13] MEDS: AMIODARONE HCL 200 MG TABLET PO SCH (22:20)
[2019-05-13] MEDS: INSULIN LISPRO 100 UNIT/ML 3 ML VIAL SUBCUT SCH (22:53)
[2019-05-14] MEDS ORDERED: PIPERACILLIN/TAZOBACTAM 3.375 GM VIAL IV ONE (00:06)
[2019-05-14] MEDS: PIPERACILLIN SODIUM/TAZOBACTAM 3.375 GM in NORMAL SALINE 100 ML IV SCH ×4 (03:18→22:22)
[2019-05-14 06:23] LABS: APPEARANCE,URINE SLIGHTLY-CLOUDY; BILIRUBIN,URINE NEGATIVE (NEGATIVE); COLOR,URINE YELLOW; GLUCOSE, URINE NEGATIVE (NEGATIVE); KETONES,URINE NEGATIVE (NEGATIVE); LEUKOCYTE ESTERASE,URINE LARGE (NEGATIVE); NITRITE,URINE NEGATIVE (NEGATIVE); PROTEIN,URINE NEGATIVE (NEGATIVE); URINE SPECIFIC GRAVITY 1.016
[2019-05-14] MEDS: INSULIN LISPRO 100 UNIT/ML 3 ML VIAL SUBCUT SCH ×5 (07:47→22:23)
--- NOTE | 2019-05-14 08:13 | PDOC H&P ---
History of Present Illness Admission Date/PCP: 05/13/19 19:50 VIGNESH MEADE MD Patient complains of: Right foot ulcers and the swelling History of Present Illness: KIA LOREDO is a 63 year old male This is a 63-year-old male with a history of the type 2 diabetes history of the hypertension's hyperlipidemia history of the coronary artery disease status post bypass surgery in June status post atrial fibrillation status post ablations currently follow with the Dr. Puentes at [facility] came to the emergency departments with the noticed the ulcers in the right foot and increasing the swelling Patient's denied any fever but complaining of chills no chest pain no short of breath In the emergency department patient's all blood work is stable patient has some low-grade fever at this point surgery suggest to put on IV antibiotics When I saw the patient on the floor denied any chest pain no short of breath no other symptoms Patient is currently seen by Dr. Puentes sustainability project manager 1 month back was all stable Currently on Eliquis due to the A. fib surgery wants to currently hold the Eliquis due to the potentially may be patients need a surgical debridement Past Medical History Cardiac Medical History: Reports: Atrial Fibrillation, Coronary Artery Disease, Myocardial Infarction, Hyperlipidema, Hypertension, Peripheral Vascular Disease Endocrine Medical History: Reports: Diabetes Mellitus Type 2 Past Surgical History Past Surgical History: Reports: Coronary Artery Bypass Graft, Orthopedic Surgery - Spinal fusion, Vascular Surgery, Other - A Fib ablation Social History Information Source: Patient Lives with: Spouse/Significant other Smoking Status: Never Smoker Frequency of Alcohol Use: None Hx Recreational Drug Use: No Hx Prescription Drug Abuse: No Family History Family History: Reviewed & Not Pertinent Parental Family History Reviewed: Yes Children Family History Reviewed: Yes Sibling(s) Family History Reviewed.: Yes Medication/Allergy Home Medications: Amiodarone HCl [Cordarone 200 mg Tablet] 200 mg PO QHS 05/13/19 Apixaban [Eliquis 5 mg Tablet] 5 mg PO Q12 05/13/19 Aspirin [Lo-Dose Aspirin EC] 81 mg PO DAILY 05/13/19 Atorvastatin Calcium [Lipitor 40 mg Tablet] 40 mg PO DAILY 05/13/19 Furosemide [Lasix 20 mg Tablet] 20 mg PO QAM 05/13/19 Hum Insulin NPH/Reg Insulin Hm [Novolin 70-30 100 Unit/Ml Vial] 0 unit SQ .SLDSCALE 05/13/19 Lisinopril [Prinivil 2.5 mg Tablet] 2.5 mg PO DAILY 05/13/19 Metoprolol Tartrate [Lopressor 25 mg Tablet] 25 mg PO QHS 05/13/19 Potassium Chloride [Klor-Con 10 Meq Capsule ER] 10 meq PO DAILY 05/13/19 Allergies/Adverse Reactions: cortisone [Cortisone] Allergy (Verified 05/13/19 17:09) Sulfa (Sulfonamide Antibiotics) Allergy (Verified 05/13/19 17:09) Review of Systems Constitutional: ABSENT: chills, fever(s), headache(s), weight gain, weight loss Eyes: ABSENT: visual disturbances Ears: ABSENT: hearing changes Cardiovascular: ABSENT: chest pain, dyspnea on exertion, edema, orthropnea, palpitations Respiratory: ABSENT: cough, hemoptysis Gastrointestinal: ABSENT: abdominal pain, constipation, diarrhea, hematemesis, hematochezia, nausea, vomiting Genitourinary: ABSENT: dysuria, hematuria Musculoskeletal: ABSENT: joint swelling Integumentary: ABSENT: rash, wounds Neurological: ABSENT: abnormal gait, abnormal speech, confusion, dizziness, focal weakness, syncope Psychiatric: ABSENT: anxiety, depression, homidical ideation, suicidal ideation Endocrine: ABSENT: cold intolerance, heat intolerance, menstrual abnormalities, polydipsia, polyuria Hematologic/Lymphatic: ABSENT: easy bleeding, easy bruising, lymphadenopathy Physical Exam Vital Signs: Temp Pulse Resp BP Pulse Ox 99.2 F 70 18 125/66 96 05/13/19 21:57 05/14/19 02:00 05/13/19 21:57 05/13/19 21:57 05/13/19 21:57 Intake & Output 05/13/19 05/14/19 05/15/19 06:59 06:59 06:59 Intake Total 542 Output Total 200 Balance 342 Weight 129.7 kg General appearance: PRESENT: no acute distress, well-developed, well-nourished Head exam: PRESENT: atraumatic, normocephalic Eye exam: PRESENT: conjunctiva pink, EOMI, PERRLA. ABSENT: scleral icterus Ear exam: PRESENT: normal external ear exam Mouth exam: PRESENT: moist, tongue midline Neck exam: PRESENT: full ROM. ABSENT: carotid bruit, JVD, lymphadenopathy, thyromegaly Respiratory exam: PRESENT: clear to auscultation xochitl Cardiovascular exam: PRESENT: RRR. ABSENT: diastolic murmur, rubs, systolic murmur Vascular exam: PRESENT: normal capillary refill GI/Abdominal exam: PRESENT: normal bowel sounds, soft. ABSENT: distended, guarding, mass, organolmegaly, rebound, tenderness Rectal exam: PRESENT: deferred Additional comments: Right lower extremity no swelling patient have a vein graft from both side there was mild eschars on the right foot and swelling is more on the right compared to the left Neurological exam: PRESENT: alert, awake, oriented to person, oriented to place, oriented to time, oriented to situation, CN II-XII grossly intact. ABSENT: motor sensory deficit Psychiatric exam: PRESENT: appropriate affect, normal mood. ABSENT: homicidal ideation, suicidal ideation Skin exam: PRESENT: dry, intact, warm. ABSENT: cyanosis, rash Results Laboratory Results: 05/13/19 17:34 05/13/19 17:34 05/13/19 05/13/19 05/14/19 17:34 17:34 06:10 WBC 8.8 RBC 4.09 L Hgb 11.6 L Hct 34.6 L MCV 85 MCH 28.3 MCHC 33.4 RDW 14.3 H Plt Count 339 Seg Neutrophils % 74.6 Sodium 138.3 Potassium 4.4 Chloride 102 Carbon Dioxide 29 Anion Gap 7 BUN 16 Creatinine 0.88 Est GFR ( Amer) > 60 Glucose 137 H Calcium 9.1 Total Bilirubin 0.5 AST 23 Alkaline Phosphatase 58 Total Protein 6.7 Albumin 3.5 Urine Color YELLOW Urine Appearance SLIGHTLY-CLOUDY Urine pH 6.0 Ur Specific [place] 1.016 Urine Protein NEGATIVE Urine Glucose (UA) NEGATIVE Urine Ketones NEGATIVE Urine Blood LARGE H Urine Nitrite NEGATIVE Ur Leukocyte Esterase LARGE H Urine WBC (Auto) 7 Urine RBC (Auto) 151 Impressions: Foot X-Ray 05/13/19 17:16 IMPRESSION: NEGATIVE STUDY OF THE RIGHT FOOT. NO RADIOGRAPHIC EVIDENCE OF ACUTE INJURY. Assessment & Plan - Diagnosis (1) Diabetic foot infection Is this a current diagnosis for this admission?: Yes Plan: Continues to IV antibiotics Follow with the surgery Since ultrasounds of the venous and Doppler both is stable No DVT no significant arterial disease (2) Type 2 diabetes mellitus Qualifiers: Diabetes mellitus [facility] insulin use: with long term care social worker use Is this a current diagnosis for this admission?: Yes Plan: Continues to sliding scale's Continues to NovoLog 70/30 but he is on sliding scale's will be used between 20 to 30 units a day (3) Hypertension Qualifiers: Hypertension type: essential hypertension Qualified Code(s): I10 - Essential (primary) hypertension Is this a current diagnosis for this admission?: Yes Plan: Continues to current medications (4) Atrial fibrillation Qualifiers: Atrial fibrillation type: chronic Qualified Code(s): I48.2 - Chronic atrial fibrillation Is this a current diagnosis for this admission?: Yes Plan: As per surgery request we will hold the Eliquis put on Lovenox We will consult the surgery for preop clearance (5) Hyperlipidemia Qualifiers: Hyperlipidemia type: unspecified Qualified Code(s): E78.5 - Hyperlipidemia, unspecified Is this a current diagnosis for this admission?: Yes (6) Coronary artery disease Qualifiers: Coronary Disease-Associated Artery/Lesion type: bypass graft Associated a ngina: without angina Is this a current diagnosis for this admission?: Yes Plan: Current EKGs all stable Continues to current medications - Time Time Spent: 50 to 70 Minutes Medications reviewed and adjusted accordingly: Yes Anticipated discharge: Home Within: Other - Inpatient Certification Based on my medical assessment, after consideration of the patient's comorbidities, presenting symptoms, or acuity I expect that the services needed warrant INPATIENT care.: Yes I certify that my determination is in accordance with my understanding of Medicare's requirements for reasonable and necessary INPATIENT services [42 CFR 412.3e].: Yes Medical Necessity: Significant Comorbidiites Make Outpatient Treatment Too Risky, Need for IV Antibiotics Post Hospital Care: D/C Former Hand Documentation - Plan Summary Plan Summary: Admit the patient in the telemetry bed see MD orders
[2019-05-14 08:54] LABS: ABSOLUTE BASOPHILS # (AUTO) 0.1 10^3/uL (0.0-0.2); ABSOLUTE EOSINOPHILS # (AUTO) 0.3 10^3/uL (0.0-0.6); ABSOLUTE LYMPHOCYTES (AUTO) 1.5 10^3/uL (0.5-4.7); ABSOLUTE MONOCYTES (AUTO) 0.8 10^3/uL (0.1-1.4); ABSOLUTE NEUT (AUTO) 6.4 10^3/uL (1.7-8.2); ANION GAP 8 (5-19); BASOPHILS % (AUTO) 0.7 % (0-2); BLOOD UREA NITROGEN 13 mg/dL (7-20); CALCIUM 8.8 mg/dL (8.4-10.2); CARBON DIOXIDE 27 mmol/L (22-30); CHLORIDE 103 mmol/L (98-107); GLUCOSE 117 mg/dL (75-110); HEMATOCRIT 33.5 % (37.9-51.0); HEMOGLOBIN 11.2 g/dL (13.5-17.0); LYMPHOCYTES % (AUTO) 16.1 % (13-45); MEAN CORPUSCULAR HEMOGLOBIN 28.2 pg (27.0-33.4); MEAN CORPUSCULAR HGB CONC 33.4 g/dL (32.0-36.0); MEAN CORPUSCULAR VOLUME 85 fl (80-97); MONOCYTES % (AUTO) 8.5 % (3-13); PLATELET COUNT 341 10^3/uL (150-450); POTASSIUM 4.3 mmol/L (3.6-5.0); RED BLOOD COUNT 3.96 10^6/uL (4.35-5.55); SEGMENTED NEUTROPHILS % (AUTO) 71.7 % (42-78); TOTAL CELLS COUNTED % (AUTO) 100 %
--- NOTE | 2019-05-14 08:56 | XCELERA REPORT ---
[address] [place] [facility] [address] Lower Extremity Venous Evaluation Procedure: Color flow and duplex imaging of the veins of the right lower extremity as well as the left Common Femoral vein. Right Sided Venous Evaluation Normal vessel filling wall to wall, compression and augmentation as well as Colour flow down to the infrageniculate veins. Left Sided Venous Evaluation The left common femoral vein is fully compressible. Spontaneous and phasic flow is present in the left common femoral vein. Interpretation Summary No duplex evidence of DVT or obstruction in the right lower extremity nor in the left Common Femoral vein. Name: KIA LOREDO Age: 63 yrs Gender: Male : 1955 Patient Status: Inpatient Patient Location: [place] [address]^A Study Date: 05/13/2019 06:54 PM Reason For Study: RLE swelling Ordering Physician: PATTY HERNANDEZ Performed By: RENZO : PATTY HERNANDEZ > Sandoval Lamar
[2019-05-14] MEDS: POTASSIUM CHLORIDE 10 MEQ CAPSULE.ER PO SCH (09:08)
[2019-05-14] MEDS: FUROSEMIDE 20 MG TABLET PO SCH (09:08)
[2019-05-14] MEDS: LISINOPRIL 5 MG TABLET PO SCH (09:09)
[2019-05-14] MEDS: ENOXAPARIN SODIUM INJ 40 MG/0.4 ML DISP.SYRIN SUBCUT SCH (09:10)
[2019-05-14] MEDS: ASPIRIN 81 MG TABLET, ENT COATED PO SCH (09:10)
[2019-05-14] MEDS: DOCUSATE SODIUM 100 MG CAPSULE PO SCH ×2 (09:10→17:07)
[2019-05-14] MEDS ORDERED: ATORVASTATIN CALCIUM 40 MG TABLET PO SCH (10:00)
[2019-05-14] MEDS ORDERED: ENOXAPARIN SODIUM INJ 40 MG/0.4 ML DISP.SYRIN SUBCUT SCH (10:00)
[2019-05-14] MEDS ORDERED: (PENDING PHARMACY ID) (Lisinopril [Prinivil 2.5 Mg Tablet] 2.5 MG) PO SCH (10:00)
--- NOTE | 2019-05-14 12:20 | XCELERA REPORT ---
[address] [address] Lower Extremity Arterial Evaluation Name: KIA LOREDO Age: 63 yrs Gender: Male : 1955 Patient Status: Inpatient Patient Location: [place] [address]^A Study Date: 05/13/2019 07:13 PM Procedure: A color flow and duplex scan of the lower extremity arteries was performed on the right with velocity and waveform anaylsis. Reason For Study: RLE swelling, foot wound Ordering Physician: PATTY HERNANDEZ Performed By: RENZO Measurements and Calculations Right Left BOWLING PIN REFINISHER PSV 151.9 cm/sec Prox SFA PSV 150.2 cm/sec Mid SFA PSV -144.9 cm/sec Dist SFA PSV -131.8 cm/sec Prox Pop A PSV -83.6 cm/sec Mid PARUL PSV 33.9 cm/sec Dist PARUL PSV 53.4 cm/sec Dist MULTIPLE WIRE SAWYER PSV 25.1 cm/sec Moisés Pedis PSV -128.7 cm/sec Right Side Arterial Evaluation Normal velocity and triphasic waveforms noted from the Common Femoral artery to the Femoral artery . Biphasic with normal velocity in the Popliteal and Dorsalis Pedis arteries. Monophasic with low velocity, spectral broadening in the anterior Tibial artery. Ankle Brachial index not obtained. Interpretation Summary Moderate hemodynamically significant lesions in the right lower extremity only, on duplex imaging, at rest. Duplex indicates significant disease in the Popliteal and sequentially, in the posterior Tibial. : PATTY HERNANDEZ > Sandoval Lamar
--- NOTE | 2019-05-14 14:06 | PDOC PROGRESS REPORT ---
Subjective Progress Note for:: 05/14/19 Subjective:: This is a 63-year-old male with a severe diabetic foot infection of the right foot. Patient has a large eschar on the plantar surface of the foot beneath the fifth metatarsal head. His problem has been ongoing for the last 1 week. It is worsening. He complains of pain, swelling, and erythema of the right foot. He reports subjective fevers and chills. He denies chest pain, shortness of breath, headache, nausea, vomiting, malaise, fatigue, blurry vision, dizziness. Reason For Visit: DM WOUND Physical Exam Vital Signs: Temp Pulse Resp BP Pulse Ox 98.6 F 74 18 125/63 96 05/14/19 11:02 05/14/19 11:02 05/14/19 11:02 05/14/19 11:02 05/14/19 11:02 Intake & Output 05/13/19 05/14/19 05/15/19 06:59 06:59 06:59 Intake Total 542 100 Output Total 200 Balance 342 100 Weight 129.7 kg General appearance: PRESENT: obese Head exam: PRESENT: atraumatic, normocephalic Eye exam: PRESENT: EOMI, PERRLA Mouth exam: PRESENT: moist, neck supple Neck exam: ABSENT: tenderness, thyromegaly, tracheal deviation, tracheostomy Respiratory exam: PRESENT: clear to auscultation xochitl, symmetrical, unlabored. ABSENT: chest wall tenderness, tachypnea, wheezes Pulses: PRESENT: normal radial pulses GI/Abdominal exam: PRESENT: soft. ABSENT: distended, firm, guarding, rebound, tenderness Rectal exam: PRESENT: deferred Extremities exam: PRESENT: +2 edema, other - Erythema and swelling to the right foot. Large eschar to the foot, plantar surface, at the fifth metatarsal head.. ABSENT: clubbing Musculoskeletal exam: ABSENT: deformity Neurological exam: PRESENT: alert, awake, oriented to person, oriented to place, oriented to time, oriented to situation Psychiatric exam: ABSENT: agitated, anxious, depressed Focused psych exam: ABSENT: delusional Skin exam: PRESENT: erythema - Right foot. ABSENT: cyanosis, jaundice Results Laboratory Results: 05/14/19 07:48 05/14/19 07:48 05/13/19 05/13/19 05/14/19 17:34 17:34 06:10 WBC 8.8 RBC 4.09 L Hgb 11.6 L Hct 34.6 L MCV 85 MCH 28.3 MCHC 33.4 RDW 14.3 H Plt Count 339 Seg Neutrophils % 74.6 Sodium 138.3 Potassium 4.4 Chloride 102 Carbon Dioxide 29 Anion Gap 7 BUN 16 Creatinine 0.88 Est GFR ( Amer) > 60 Glucose 137 H Calcium 9.1 Total Bilirubin 0.5 AST 23 Alkaline Phosphatase 58 Total Protein 6.7 Albumin 3.5 Urine Color YELLOW Urine Appearance SLIGHTLY-CLOUDY Urine pH 6.0 Ur Specific [place] 1.016 Urine Protein NEGATIVE Urine Glucose (UA) NEGATIVE Urine Ketones NEGATIVE Urine Blood LARGE H Urine Nitrite NEGATIVE Ur Leukocyte Esterase LARGE H Urine WBC (Auto) 7 Urine RBC (Auto) 151 05/14/19 05/14/19 07:48 07:48 WBC 9.0 RBC 3.96 L Hgb 11.2 L Hct 33.5 L MCV 85 MCH 28.2 MCHC 33.4 RDW 14.0 Plt Count 341 Seg Neutrophils % 71.7 Sodium 138.0 Potassium 4.3 Chloride 103 Carbon Dioxide 27 Anion Gap 8 BUN 13 Creatinine 0.79 Est GFR ( Amer) > 60 Glucose 117 H Calcium 8.8 Total Bilirubin AST Alkaline Phosphatase Total Protein Albumin Urine Color Urine Appearance Urine pH Ur Specific [place] Urine Protein Urine Glucose (UA) Urine Ketones Urine Blood Urine Nitrite Ur Leukocyte Esterase Urine WBC (Auto) Urine RBC (Auto) Impressions: Foot X-Ray 05/13/19 17:16 IMPRESSION: NEGATIVE STUDY OF THE RIGHT FOOT. NO RADIOGRAPHIC EVIDENCE OF ACUTE INJURY. Assessment & Plan - Diagnosis (1) Diabetic foot infection Is this a current diagnosis for this admission?: Yes - Plan Summary Plan Summary: This is a 63-year-old male with a diabetic foot infection of the right foot. There is an eschar present on the plantar surface of the foot. Upon palpation of the foot, there is purulent material emanating from the eschar. I have recommended surgical debridement of all infected tissue. Continue antibiotics. The patient is currently on blood thinners. His last dose of Eliquis was yesterday morning. Plan to hold Eliquis for 48 hours, then perform surgery. Hopefully, the patient will be ready for surgery by tomorrow. We will keep the patient n.p.o. after midnight in the anticipation of surgical intervention tomorrow. Will follow.
[2019-05-14] MEDS: ATORVASTATIN CALCIUM 40 MG TABLET PO SCH (22:22)
[2019-05-14] MEDS: AMIODARONE HCL 200 MG TABLET PO SCH (22:22)
[2019-05-14] MEDS: METOPROLOL TARTRATE 25 MG TABLET PO SCH (22:22)
--- NOTE | 2019-05-14 23:36 | PDOC CONSULTATION ---
Consultation-Blank Consultation: CARDIOLOGY CONSULTATION BY Dr. Yesenia Amaro on 05/14/2019. Patient seen at 11 AM on on 05/14/2019. 60 minutes spent on this patient more than 50% of time spent in direct patient care. REASON FOR CARDIOLOGY consultation:. He the patient's Eliquis and cardiac risk assessment for the patient to have debridement and possibly further surgery for his right diabetic ulcer. CONSULT REQUESTING PHYSICIAN's: Dr. Gutierrez and Dr. White. HISTORY PRESENT ILLNESS: The patient with a known history of coronary artery disease, history of atrial fibrillation status post ablation, history of diabetes mellitus, history of hypertension, admitted as the found the patient is right foot diabetic ulcer with right leg swelling. The patient found to have an infected diabetic ulcer of the right foot and respiratory debridement of this and possibly further treatment options surgically if indicated. Surgery is asked that the patient come off Eliquis prior to his surgery. The patient has a history of myocardial infarction and subsequently ended up having coronary artery bypass graft surgery in [place] 2017. Postoperatively he was found to be in atrial fibrillation. He states he had an ablation procedure and has been on Eliquis since then. Since after that ablation he has not had any clinical recurrence of his atrial fibrillation. He denies any chest pain or discomfort. There is no symptoms of heart failure. There is no PND orthopnea or leg edema. There is no palpitations. There is no history of TIA CVA. He has a history of diabetes mellitus which he states is well controlled. There is no history of thyroid disease. He has hyperlipidemia and hypertension. There is no history of asthma or COPD. There is no history of sleep apnea. Past Medical History Cardiac Medical History: Reports: Atrial Fibrillation, Coronary Artery Disease, Myocardial Infarction, Hyperlipidema, Hypertension, Peripheral Vascular Disease Endocrine Medical History: Reports: Diabetes Mellitus Type 2 Past Surgical History Past Surgical History: Reports: Coronary Artery Bypass Graft, Orthopedic Surgery - Spinal fusion, Vascular Surgery, Other - A Fib ablation Social History Information Source: Patient Lives with: Spouse/Significant other Smoking Status: Never Smoker Frequency of Alcohol Use: None Hx Recreational Drug Use: No Hx Prescription Drug Abuse: No Family History Family History: Positive for hypertension and coronary artery disease and diabetes. Medication/Allergy Home Medications: Amiodarone HCl [Cordarone 200 mg Tablet] 200 mg PO QHS 0 05/13/19 Apixaban [Eliquis 5 mg Tablet] 5 mg PO Q12 05/13/19 Aspirin [Lo-Dose Aspirin EC] 81 mg PO DAILY 05/13/19 Atorvastatin Calcium [Lipitor 40 mg Tablet] 40 mg PO DAILY 05/13/19 Furosemide [Lasix 20 mg Tablet] 20 mg PO QAM 05/13/19 Hum Insulin NPH/Reg Insulin Hm [Novolin 70-30 100 Unit/Ml Vial] 0 unit SQ .SLDSCALE 05/13/19 Lisinopril [Prinivil 2.5 mg Tablet] 2.5 mg PO DAILY 05/13/19 Metoprolol Tartrate [Lopressor 25 mg Tablet] 25 mg PO QHS 05/13/19 Potassium Chloride [Klor-Con 10 Meq Capsule ER] 10 meq PO DAILY 05/13/19 Allergies/Adverse Reactions: cortisone [Cortisone] Sulfa Review of Systems Constitutional: ABSENT: chills, fever(s), headache(s), weight gain, weight loss Eyes: ABSENT: visual disturbances Ears: ABSENT: hearing changes Cardiovascular: ABSENT: chest pain, dyspnea on exertion, edema, orthropnea, palpitations Respiratory: ABSENT: cough, hemoptysis Gastrointestinal: ABSENT: abdominal pain, constipation, diarrhea, hematemesis, hematochezia, nausea, vomiting Genitourinary: ABSENT: dysuria, hematuria Musculoskeletal: ABSENT: joint swelling Integumentary: ABSENT: rash, wounds Neurological: ABSENT: abnormal gait, abnormal speech, confusion, dizziness, focal weakness, syncope Psychiatric: ABSENT: anxiety, depression, homidical ideation, suicidal ideation Endocrine: ABSENT: cold intolerance, heat intolerance, menstrual abnormalities, polydipsia, polyuria Hematologic/Lymphatic: ABSENT: easy bleeding, easy bruising, lymphadenopathy RESUSCITATION Status: The patient is a full code. His is a surrogate healthcare decision maker. Current Medications Generic Name Dose Route Start Last Admin Trade Name Freq PRN Reason Stop Dose Admin Acetaminophen 650 mg 05/13/19 19:42 Tylenol 325 Mg Tablet PO 06/12/19 19:41 Q4HP PRN FOR PAIN OR TEMP Amiodarone HCl 200 mg 05/13/19 22:00 05/14/19 22:22 Cordarone 200 Mg Tablet PO 06/12/19 21:59 200 mg QHS JENNIFER Administration Aspirin 81 mg 05/14/19 10:00 05/14/19 09:10 Ecotrin 81 Mg Ec Tablet PO 06/13/19 09:59 81 mg DAILY JENNIFER Administration Atorvastatin Calcium 40 mg 05/14/19 22:00 05/14/19 22:22 Lipitor 40 Mg Tablet PO 06/13/19 21:59 40 mg QHS JENNIFER Administration Dextrose 12.5 gm 05/13/19 19:47 Dextrose Inj 50% Syringe (25 Gm/50 Ml) IV 06/12/19 19:46 PRN PRN FOR BG 50-69 IN ALERT PATIENT Protocol Dextrose 25 gm 05/13/19 19:47 Dextrose Inj 50% Syringe (25 Gm/50 Ml) IV 06/12/19 19:46 PRN PRN PER PROTOCOL Protocol Docusate Sodium 100 mg 05/14/19 10:00 05/14/19 17:07 Colace 100 Mg Capsule PO 06/13/19 09:59 Not Given BID JENNIFER Enoxaparin Sodium 40 mg 05/14/19 10:00 05/14/19 09:10 Lovenox Inj 40 Mg/0.4 Ml Disp.Syrin SUBCUT 06/13/19 09:59 40 mg DAILY JENNIFER Administration Furosemide 20 mg 05/14/19 08:00 05/14/19 09:08 Lasix 20 Mg Tablet PO 06/13/19 07:59 20 mg QAM JENNIFER Administration Glucagon 1 mg 05/13/19 19:47 Glucagen Inj 1 Mg Vial IM 06/12/19 19:46 PRN PRN Evaluate for BG < 70 Protocol Glucose 15 gm 05/13/19 19:47 Glutose 40% Gel 15 Gm Tube PO 06/12/19 19:46 PRN PRN FOR BG 50-69 IN ALERT PATIENT Protocol Glucose 30 gm 05/13/19 19:47 Glutose 40% Gel 15 Gm Tube PO 06/12/19 19:46 PRN PRN FOR BG < 50 IN ALERT PATIENT Protocol Piperacillin Sod/Tazobactam 100 mls @ 200 mls/hr 05/14/19 03:00 05/14/19 22:22 Sod 3.375 gm/ Sodium Chloride IV 05/21/19 02:59 200 mls/hr Q6A JENNIFER Administration Insulin Human Lispro 0 - 12 unit 05/13/19 22:00 05/14/19 22:23 Humalog Insulin 100 Unit/1 Ml 3 Ml Vial SUBCUT 06/12/19 21:59 2 unit ACHS JENNIFER Administration Protocol Lisinopril 2.5 mg 05/14/19 10:00 05/14/19 09:09 Prinivil 5 Mg Tablet PO 06/13/19 09:59 Not Given DAILY JENNIFER Metoprolol Tartrate 25 mg 05/13/19 22:00 05/14/19 22:22 Lopressor 25 Mg Tablet PO 06/12/19 21:59 25 mg QHS JENNIFER Administration Oxycodone/Acetaminophen 1 tab 05/13/19 19:42 Percocet 5-325 Mg Tablet PO 05/20/19 19:41 Q6HP PRN FOR PAIN Potassium Chloride 10 meq 05/14/19 10:00 05/14/19 09:08 Klor-Con 10 Meq Capsule Er PO 06/13/19 09:59 10 meq DAILY JENNIFER Administration Discontinued Medications Generic Name Dose Route Start Last Admin Trade Name Freq PRN Reason Stop Dose Admin Apixaban 5 mg 05/13/19 22:00 05/13/19 22:21 Eliquis 5 Mg Tablet PO 06/12/19 21:59 5 mg Q12 JENNIFER Administration Atorvastatin Calcium 40 mg 05/14/19 10:00 Lipitor 40 Mg Tablet PO 06/13/19 09:59 DAILY [facility] Enoxaparin Sodium 40 mg 05/14/19 10:00 Lovenox Inj 40 Mg/0.4 Ml Disp.Syrin SUBCUT 06/13/19 09:59 DAILY [facility] Piperacillin Sod/Tazobactam Sod 3.375 gm 05/13/19 18:29 05/13/19 19:53 Zosyn Inj 3.375 Gm Vial IV 05/13/19 18:30 3.375 gm IVBAG (ED) ONE Administration Piperacillin Sod/Tazobactam Sod Confirm 05/14/19 00:06 05/14/19 03:18 Zosyn Inj 3.375 Gm Vial Administered 05/14/19 00:07 Not Given Dose 3.375 gm IV .STK-MED ONE Physical EXAMINATION: The patient is mild to moderately obese. At present no acute distress. He is well-groomed Selected Entries 05/14/19 11:02 Temperature 98.6 F Temperature Oral Source Pulse Rate 74 Respiratory 18 Rate Blood Pressure 125/63 Blood Pressure 83 Mean BP Location Right Arm BP Position Supine O2 Sat by Pulse 96 Oximetry Oxygen Delivery Room Air Method HEAD: Head is atraumatic normocephalic. Eyes: Pupils are equal round regular reactive light accommodation extraocular movements are normal there is no congenital pallor there is no scleral icterus. Ears: External auditory canals are clear, there are no lesions of the pinna. Nose: No deviated nasal septum and no inflammation of the nasal mucous membrane. Mouth: Mucous membranes of mouth are moist tongue is moist there is no ulcers there is no bleeding from the gums. Throat: There is no redness of the oropharynx there is no exudates. Skin: There is no petechia or ecchymosis there is no skin lesions or skin rashes. Neck: Neck is supple there is no JVD carotids equal there is no bruit there is no lymphadenopathy there is no neck stiffness. There is no goiter trachea central lungs: Lungs are clear to auscultation percussion there is no accessory muscles of respiration in use. There is no rhonchi rales or wheezing. There is no chest wall tenderness. HEART: S1-S2 is heard there is no S3 gallop there is no S4 gallop S1 is of normal intensity. There is no rub. The systolic murmur in the left sternal border and apex without radiation. Abdomen: Abdomen is soft nontender there is no paraspinal megaly bowel sounds well heard there is no tender areas of masses. There is no rebound guarding or rigidity. Extremities: Femorals are decreased, there is no femoral bruits. Leg pulses are diminished.There is no pedal edema. There is no DVT or cellulitis. There is no cyanosis or clubbing . The right leg diabetic ulcer area is bandaged. Dressing is clean. There is no calf tenderness. 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 Psychiatric: The patient judgment and insight are intact and his affect is normal. Labs- Entire Visit 05/13/19 05/13/19 05/13/19 17:34 17:34 22:00 WBC 8.8 RBC 4.09 L Hgb 11.6 L Hct 34.6 L MCV 85 MCH 28.3 MCHC 33.4 RDW 14.3 H Plt Count 339 Lymph % (Auto) 13.7 [place] % (Auto) 8.0 Eos % (Auto) 3.3 Baso % (Auto) 0.4 Absolute Neuts (auto) 6.6 Absolute Lymphs (auto) 1.2 Absolute Monos (auto) 0.7 Absolute Eos (auto) 0.3 Absolute Basos (auto) 0.0 Seg Neutrophils % 74.6 Sodium 138.3 Potassium 4.4 Chloride 102 Carbon Dioxide 29 Anion Gap 7 BUN 16 Creatinine 0.88 Est GFR ( Amer) > 60 Est GFR (MDRD) Non-Af > 60 Glucose 137 H POC Glucose 116 H Calcium 9.1 Total Bilirubin 0.5 Direct Bilirubin 0.1 Neonat Total Bilirubin Not Reportable Neonat Direct Bilirubin Not Reportable Neonat Indirect Bili Not Reportable AST 23 ALT 14 Alkaline Phosphatase 58 Total Protein 6.7 Albumin 3.5 Urine Color Urine Appearance Urine pH Ur Specific [place] Urine Protein Urine Glucose (UA) Urine Ketones Urine Blood Urine Nitrite Urine Bilirubin Urine Urobilinogen Ur Leukocyte Esterase Urine WBC (Auto) Urine RBC (Auto) Urine Bacteria (Auto) Urine WBC Clumps Squamous Epi Cells Auto Urine Mucus (Auto) Urine Ascorbic Acid 05/14/19 05/14/19 05/14/19 06:07 06:10 07:48 WBC 9.0 RBC 3.96 L Hgb 11.2 L Hct 33.5 L MCV 85 MCH 28.2 MCHC 33.4 RDW 14.0 Plt Count 341 Lymph % (Auto) 16.1 [place] % (Auto) 8.5 Eos % (Auto) 3.0 Baso % (Auto) 0.7 Absolute Neuts (auto) 6.4 Absolute Lymphs (auto) 1.5 Absolute Monos (auto) 0.8 Absolute Eos (auto) 0.3 Absolute Basos (auto) 0.1 Seg Neutrophils % 71.7 Sodium Potassium Chloride Carbon Dioxide Anion Gap BUN Creatinine Est GFR ( Amer) Est GFR (MDRD) Non-Af Glucose POC Glucose 119 H Calcium Total Bilirubin Direct Bilirubin Neonat Total Bilirubin Neonat Direct Bilirubin Neonat Indirect Bili AST ALT Alkaline Phosphatase Total Protein Albumin Urine Color YELLOW Urine Appearance SLIGHTLY-CLOUDY Urine pH 6.0 Ur Specific [place] 1.016 Urine Protein NEGATIVE Urine Glucose (UA) NEGATIVE Urine Ketones NEGATIVE Urine Blood LARGE H Urine Nitrite NEGATIVE Urine Bilirubin NEGATIVE Urine Urobilinogen 4.0 H Ur Leukocyte Esterase LARGE H Urine WBC (Auto) 7 Urine RBC (Auto) 151 Urine Bacteria (Auto) TRACE Urine WBC Clumps FEW Squamous Epi Cells Auto 3 Urine Mucus (Auto) RARE Urine Ascorbic Acid NEGATIVE 05/14/19 05/14/19 05/14/19 07:48 11:20 15:44 WBC RBC Hgb Hct MCV MCH MCHC RDW Plt Count Lymph % (Auto) [place] % (Auto) Eos % (Auto) Baso % (Auto) Absolute Neuts (auto) Absolute Lymphs (auto) Absolute Monos (auto) Absolute Eos (auto) Absolute Basos (auto) Seg Neutrophils % Sodium 138.0 Potassium 4.3 Chloride 103 Carbon Dioxide 27 Anion Gap 8 BUN 13 Creatinine 0.79 Est GFR ( Amer) > 60 Est GFR (MDRD) Non-Af > 60 Glucose 117 H POC Glucose 159 H 158 H Calcium 8.8 Total Bilirubin Direct Bilirubin Neonat Total Bilirubin Neonat Direct Bilirubin Neonat Indirect Bili AST ALT Alkaline Phosphatase Total Protein Albumin Urine Color Urine Appearance Urine pH Ur Specific [place] Urine Protein Urine Glucose (UA) Urine Ketones Urine Blood Urine Nitrite Urine Bilirubin Urine Urobilinogen Ur Leukocyte Esterase Urine WBC (Auto) Urine RBC (Auto) Urine Bacteria (Auto) Urine WBC Clumps Squamous Epi Cells Auto Urine Mucus (Auto) Urine Ascorbic Acid 05/14/19 21:12 WBC RBC Hgb Hct MCV MCH MCHC RDW Plt Count Lymph % (Auto) [place] % (Auto) Eos % (Auto) Baso % (Auto) Absolute Neuts (auto) Absolute Lymphs (auto) Absolute Monos (auto) Absolute Eos (auto) Absolute Basos (auto) Seg Neutrophils % Sodium Potassium Chloride Carbon Dioxide Anion Gap BUN Creatinine Est GFR ( Amer) Est GFR (MDRD) Non-Af Glucose POC Glucose 186 H Calcium Total Bilirubin Direct Bilirubin Neonat Total Bilirubin Neonat Direct Bilirubin Neonat Indirect Bili AST ALT Alkaline Phosphatase Total Protein Albumin Urine Color Urine Appearance Urine pH Ur Specific [place] Urine Protein Urine Glucose (UA) Urine Ketones Urine Blood Urine Nitrite Urine Bilirubin Urine Urobilinogen Ur Leukocyte Esterase Urine WBC (Auto) Urine RBC (Auto) Urine Bacteria (Auto) Urine WBC Clumps Squamous Epi Cells Auto Urine Mucus (Auto) Urine Ascorbic Acid Foot X-Ray 05/13/19 17:16 IMPRESSION: NEGATIVE STUDY OF THE RIGHT FOOT. NO RADIOGRAPHIC EVIDENCE OF ACUTE INJURY. No EKG available prep. We will get a baseline EKG. IMPRESSION/RECOMMENDATION: 1. Right leg diabetic ulcer for debridement and further surgical interventions. 2. Coronary artery disease. History of [place]. History of coronary bypass graft surgery. Patient with no anginal symptoms.. History of paroxysmal atrial fibrillation. Status post in sinus rhythm status post ablation. Note patient is on Cordarone and Eliquis. 3. Hypertension: Blood pressures well controlled 4. Diabetes mellitus: Continue antidiabetic treatment and current Accu-Chek regimen. 5. Hyperlipidemia: Continue statin. 6. Preoperative cardiac risk assessment and opinion regarding Eliquis stoppage temporally. Medications reviewed. Management plan discussed with the attending physician and with the other caregiving providers on the case including the surgical list. THE PATIENT WILL BE ACCEPTABLE CARDIAC RISK FOR THIS SURGICAL PROCEDURE. WOULD RECOMMEND STOPPING ELIQUIS FOR AT LEAST 48 HOURS, if not 72 HOURS. WOULD RECOMMEND RESTARTING ELIQUIS SOON SAFE AND FEASIBLE POST SURGERY. Medical decision making is of high complexity. Will follow
[2019-05-15] MEDS: PIPERACILLIN SODIUM/TAZOBACTAM 3.375 GM in NORMAL SALINE 100 ML IV SCH ×4 (03:47→21:36)
[2019-05-15 04:44] LABS: ABSOLUTE EOSINOPHILS # (AUTO) 0.3 10^3/uL (0.0-0.6); ABSOLUTE LYMPHOCYTES (AUTO) 1.5 10^3/uL (0.5-4.7); ABSOLUTE MONOCYTES (AUTO) 0.8 10^3/uL (0.1-1.4); ABSOLUTE NEUT (AUTO) 5.7 10^3/uL (1.7-8.2); BASOPHILS % (AUTO) 0.5 % (0-2); EOSINOPHILS % (AUTO) 3.4 % (0-6); HEMATOCRIT 34.1 % (37.9-51.0); HEMOGLOBIN 11.3 g/dL (13.5-17.0); LYMPHOCYTES % (AUTO) 18.4 % (13-45); MEAN CORPUSCULAR HEMOGLOBIN 28.2 pg (27.0-33.4); MEAN CORPUSCULAR HGB CONC 33.2 g/dL (32.0-36.0); MEAN CORPUSCULAR VOLUME 85 fl (80-97); MONOCYTES % (AUTO) 9.5 % (3-13); PLATELET COUNT 329 10^3/uL (150-450); RED BLOOD COUNT 4.02 10^6/uL (4.35-5.55); RED CELL DISTRIBUTION WIDTH 13.8 % (11.5-14.0); SEGMENTED NEUTROPHILS % (AUTO) 68.2 % (42-78); TOTAL CELLS COUNTED % (AUTO) 100 %; WHITE BLOOD COUNT 8.4 10^3/uL (4.0-10.5)
[2019-05-15 04:59] LABS: BLOOD UREA NITROGEN 15 mg/dL (7-20); CALCIUM 8.5 mg/dL (8.4-10.2); CARBON DIOXIDE 28 mmol/L (22-30); GLUCOSE 166 mg/dL (75-110); POTASSIUM 4.4 mmol/L (3.6-5.0)
[2019-05-15 05:04] LABS: CHLORIDE 103 mmol/L (98-107)
[2019-05-15 05:08] LABS: ANION GAP 7 (5-19)
--- NOTE | 2019-05-15 08:11 | PDOC PROGRESS REPORT ---
Subjective Progress Note for:: 05/15/19 Subjective:: Patient is currently doing fair Patient's going for the surgery for the debridement Patient's denied any fever no chills Patient is currently on a sliding scale wants to 7030 and a sliding scale but explained the patient's while in the hospital continues use the NovoLog may be giving the 15 units twice a day 7030 constipation start eating Patient's otherwise denied any chest pain to than any shortness of the breath Seen by the cardiology currently all stable for the surgery Reason For Visit: DM WOUND Physical Exam Vital Signs: Temp Pulse Resp BP Pulse Ox 98.1 F 67 16 116/62 94 05/15/19 03:47 05/15/19 07:00 05/15/19 03:47 05/15/19 03:47 05/15/19 03:47 Intake & Output 05/14/19 05/15/19 05/16/19 06:59 06:59 06:59 Intake Total 542 2654 Output Total 200 800 Balance 342 1854 Weight 129.7 kg 135.5 kg General appearance: PRESENT: no acute distress, well-developed, well-nourished Head exam: PRESENT: atraumatic, normocephalic Eye exam: PRESENT: conjunctiva pink, EOMI, PERRLA. ABSENT: scleral icterus Ear exam: PRESENT: normal external ear exam Mouth exam: PRESENT: moist, tongue midline Neck exam: PRESENT: full ROM. ABSENT: carotid bruit, JVD, lymphadenopathy, thyromegaly Respiratory exam: PRESENT: clear to auscultation xochitl Cardiovascular exam: PRESENT: RRR. ABSENT: diastolic murmur, rubs, systolic murmur Vascular exam: PRESENT: normal capillary refill GI/Abdominal exam: PRESENT: normal bowel sounds, soft. ABSENT: distended, guarding, mass, organolmegaly, rebound, tenderness Rectal exam: PRESENT: deferred Extremities exam: PRESENT: pedal edema Additional comments: Right leg mild redness and the swelling is present Neurological exam: PRESENT: alert, awake, oriented to person, oriented to place, oriented to time, oriented to situation, CN II-XII grossly intact. ABSENT: motor sensory deficit Psychiatric exam: PRESENT: appropriate affect, normal mood. ABSENT: homicidal ideation, suicidal ideation Skin exam: PRESENT: dry, intact, warm. ABSENT: cyanosis, rash Results Laboratory Results: 05/15/19 03:52 05/15/19 03:52 05/14/19 05/14/19 05/15/19 07:48 07:48 03:52 WBC 9.0 8.4 RBC 3.96 L 4.02 L Hgb 11.2 L 11.3 L Hct 33.5 L 34.1 L MCV 85 85 MCH 28.2 28.2 MCHC 33.4 33.2 RDW 14.0 13.8 Plt Count 341 329 Seg Neutrophils % 71.7 68.2 Sodium 138.0 Potassium 4.3 Chloride 103 Carbon Dioxide 27 Anion Gap 8 BUN 13 Creatinine 0.79 Est GFR ( Amer) > 60 Glucose 117 H Calcium 8.8 05/15/19 03:52 WBC RBC Hgb Hct MCV MCH MCHC RDW Plt Count Seg Neutrophils % Sodium 138.1 Potassium 4.4 Chloride 103 Carbon Dioxide 28 Anion Gap 7 BUN 15 Creatinine 0.91 Est GFR ( Amer) > 60 Glucose 166 H Calcium 8.5 Impressions: Foot X-Ray 05/13/19 17:16 IMPRESSION: NEGATIVE STUDY OF THE RIGHT FOOT. NO RADIOGRAPHIC EVIDENCE OF ACUTE INJURY. Assessment & Plan - Diagnosis (1) Diabetic foot infection Is this a current diagnosis for this admission?: Yes Plan: Patient is going for the debridement continues to IV antibiotics (2) Type 2 diabetes mellitus Qualifiers: Diabetes mellitus terminal operator insulin use: with terminal operator use Is this a current diagnosis for this admission?: Yes Plan: Continues to sliding scale's after the surgery will restart the 7030 (3) Hypertension Qualifiers: Hypertension type: essential hypertension Qualified Code(s): I10 - Essential (primary) hypertension Is this a current diagnosis for this admission?: Yes Plan: Continues to current medications (4) Atrial fibrillation Qualifiers: Atrial fibrillation type: chronic Qualified Code(s): I48.2 - Chronic atrial fibrillation Is this a current diagnosis for this admission?: Yes Plan: As per surgery request we will hold the Eliquis put on Lovenox We will consult the surgery for preop clearance (5) Hyperlipidemia Qualifiers: Hyperlipidemia type: unspecified Qualified Code(s): E78.5 - Hyperlipidemia, unspecified Is this a current diagnosis for this admission?: Yes (6) Coronary artery disease Qualifiers: Coronary Disease-Associated Artery/Lesion type: bypass graft Associated angina: without angina Is this a current diagnosis for this admission?: Yes Plan: Currently all stable - Time Time Spent with patient: 15-24 minutes Medications reviewed and adjusted accordingly: Yes Anticipated discharge: Home Within: Other - Plan Summary Plan Summary: Continues to IV antibiotics With the surgery and cardiology
[2019-05-15] MEDS: INSULIN LISPRO 100 UNIT/ML 3 ML VIAL SUBCUT SCH ×4 (08:17→21:36)
--- NOTE | 2019-05-15 09:14 | EKG REPORT ---
SEVERITY:- ABNORMAL ECG - SINUS RHYTHM FIRST DEGREE AV BLOCK LEFT POSTERIOR FASCICULAR BLOCK BORDERLINE T ABNORMALITIES, ANTERIOR LEADS : Confirmed by: Cayetano Jordan 15-May-2019 09:13:07
[2019-05-15] MEDS: DOCUSATE SODIUM 100 MG CAPSULE PO SCH ×2 (09:52→17:04)
[2019-05-15] MEDS: ASPIRIN 81 MG TABLET, ENT COATED PO SCH (09:52)
[2019-05-15] MEDS: ENOXAPARIN SODIUM INJ 40 MG/0.4 ML DISP.SYRIN SUBCUT SCH (09:52)
[2019-05-15] MEDS: POTASSIUM CHLORIDE 10 MEQ CAPSULE.ER PO SCH (09:52)
[2019-05-15] MEDS: FUROSEMIDE 20 MG TABLET PO SCH (09:52)
[2019-05-15] MEDS: LISINOPRIL 5 MG TABLET PO SCH (09:52)
[2019-05-15] MEDS ORDERED: FENTANYL CITRATE INJ/PF 100 MCG/2 ML AMPUL ONE (13:29)
[2019-05-15] MEDS ORDERED: MIDAZOLAM 2 MG/2 ML INJ ONE (13:29)
[2019-05-15] MEDS ORDERED: PROPOFOL INJ 200 MG/20 ML VIAL IV ONE (13:29)
[2019-05-15] MEDS ORDERED: BUPIVACAINE HCL 0.5 % INJ/PF 30 ML SDV ONE (13:39)
[2019-05-15] MEDS ORDERED: LIDOCAINE 1% INJ-PF (10 MG/ML) 30 ML SDV ONE (13:39)
[2019-05-15] MEDS ORDERED: MEPERIDINE HCL/PF INJ 25 MG/1 ML DISP.SYRIN IV PRN (14:39)
[2019-05-15] MEDS ORDERED: MORPHINE SULFATE 10 MG/ML INJ IV PRN (14:39)
[2019-05-15] MEDS ORDERED: PROMETHAZINE HCL INJ 25 MG/1 ML VIAL IV PRN (14:39)
[2019-05-15] MEDS ORDERED: FENTANYL CITRATE INJ/PF 100 MCG/2 ML AMPUL IV PRN ×3 (14:39)
[2019-05-15] MEDS ORDERED: DIPHENHYDRAMINE HCL 50 MG/ML VIAL IV PRN (14:39)
--- NOTE | 2019-05-15 14:57 | Operative Report ---
Operative Report DATE OF SURGERY: 05/15/19 PREOPERATIVE DIAGNOSIS: diabetic ulcer right foot POSTOPERATIVE DIAGNOSIS: The same OPERATION: Sharp debridement of right foot ulcer SURGEON: MIGUEL ANGEL ANESTHESIA: LMAC TISSUE REMOVED OR ALTERED: Necrotic tissue from right foot ulcer COMPLICATIONS: None ESTIMATED BLOOD LOSS: 10 cc QUANTITATIVE BLOOD LOSS: 10 INTRAOPERATIVE FINDINGS: Dry scab of the skin with scanty amount of pus on the mid part of the necrotic skin scab PROCEDURE: After adequate IV sedation patient was placed in supine position on the right leg propped up over a pillow. The right foot was then prepped and draped in the usual sterile fashion. Appropriate timeout was called. Next the scab noted to be on the bottom of the right foot at the ball of the fourth and fifth metatarsal areas. Scab appears to be dry. However nurses thought there was a small amount of pus that came out. The scab was sharply excised using a 15 blade. There was considerable amount of bleeding that was controlled with cautery. Patient was on Eliquis until 48 hours ago. We got into the mid part of the scab and is scanty amount of purulent material was noted and an specimen for C&S was sent to the lab. After 90% of the scab was was excised the mid part appears to be somewhat fluctuant and the subcu was then incised with a bout of 5 mm and a partially probe with a hemostat but no evidence of pus noted appeared squeezing around the area of the scab showed no other secretions. Following this the wound was then irrigated with saline solution and further hemostasis obtained with cautery. The area was subsequently dressed with a single layer of Xeroform and dressed with 4 x 4 ABD and Kerlix. Patient tolerated procedure well and brought to the recovery room in satisfactory condition.
[2019-05-15] MEDS: ATORVASTATIN CALCIUM 40 MG TABLET PO SCH (21:36)
[2019-05-15] MEDS: AMIODARONE HCL 200 MG TABLET PO SCH (21:37)
[2019-05-15] MEDS: METOPROLOL TARTRATE 25 MG TABLET PO SCH (21:37)
--- NOTE | 2019-05-15 22:22 | Progress Note ---
Provider Note Provider Note: CARDIOLOGY PROGRESS NOTE by Dr. Yesenia Amaro on 05/15/2019. SUBJECTIVE: The patient had debridement. His pain is controlled. He has no chest pain or discomfort. There is no PND orthopnea. There is no TIA CVA symptoms. The patient denies any palpitations or shortness of breath or leg edema. There is no dizziness or near syncope or syncope. PHYSICAL EXAMINATION: The patient is moderately obese. In no acute distress. He is well-groomed Selected Entries 05/15/19 17:35 Temperature 98.6 F Pulse Rate 74 Respiratory 18 Rate Blood Pressure 112/61 O2 Sat by Pulse 94 Oximetry Oxygen Delivery Room Air Method ( includes room air) HEAD: Head is atraumatic normocephalic. Eyes: Pupils are equal round regular reactive light accommodation extraocular movements are normal there is no congenital pallor there is no scleral icterus. Ears: External auditory canals a re clear, there are no lesions of the pinna. Nose: No deviated nasal septum and no inflammation of the nasal mucous membrane. Mouth: Mucous membranes of mouth are moist tongue is moist there is no ulcers there is no bleeding from the gums. Throat: There is no redness of the oropharynx there is no exudates. Skin: There is no petechia or ecchymosis there is no skin lesions or skin rashes. Neck: Neck is supple there is no JVD carotids equal there is no bruit there is no lymphadenopathy there is no neck stiffness. There is no goiter trachea central lungs: Lungs are clear to auscultation percussion there is no accessory muscles of respiration in use. There is no rhonchi rales or wheezing. There is no chest wall tenderness. HEART: S1-S2 is heard there is no S3 gallop there is no S4 gallop S1 is of normal intensity. There is no rub. The systolic murmur in the left sternal border and apex without radiation. Abdomen: Abdomen is soft nontender there is no paraspinal megaly bowel sounds well heard there is no tender areas of masses. There is no rebound guarding or rigidity. Extremities: Femorals are decreased, there is no femoral bruits. Leg pulses are diminished.There is no pedal edema. There is no DVT or cellulitis. There is no cyanosis or clubbing . The right leg diabetic ulcer area is bandaged. Dressing is clean. There is no calf tenderness. ART MODEL: The patient is awake alert oriented 3 with no focal deficits. Psychiatric: The patient judgment and insight are intact and his affect is normal. EKG: Sinus rhythm. First-degree AV block left anterior fascicular block. Diffuse T flattening. Labs- All tests 24 hr 05/15/19 05/15/19 05/15/19 03:52 03:52 06:10 WBC 8.4 RBC 4.02 L Hgb 11.3 L Hct 34.1 L MCV 85 MCH 28.2 MCHC 33.2 RDW 13.8 Plt Count 329 Lymph % (Auto) 18.4 [place] % (Auto) 9.5 Eos % (Auto) 3.4 Baso % (Auto) 0.5 Absolute Neuts (auto) 5.7 Absolute Lymphs (auto) 1.5 Absolute Monos (auto) 0.8 Absolute Eos (auto) 0.3 Absolute Basos (auto) 0.0 Seg Neutrophils % 68.2 Sodium 138.1 Potassium 4.4 Chloride 103 Carbon Dioxide 28 Anion Gap 7 BUN 15 Creatinine 0.91 Est GFR ( Amer) > 60 Est GFR (MDRD) Non-Af > 60 Glucose 166 H POC Glucose 170 H Calcium 8.5 05/15/19 05/15/19 05/15/19 11:41 15:57 21:10 WBC RBC Hgb Hct MCV MCH MCHC RDW Plt Count Lymph % (Auto) [place] % (Auto) Eos % (Auto) Baso % (Auto) Absolute Neuts (auto) Absolute Lymphs (auto) Absolute Monos (auto) Absolute Eos (auto) Absolute Basos (auto) Seg Neutrophils % Sodium Potassium Chloride Carbon Dioxide Anion Gap BUN Creatinine Est GFR ( Amer) Est GFR (MDRD) Non-Af Glucose POC Glucose 136 H 126 H 206 H Calcium IMPRESSION/RECOMMENDATION: 1. Right leg diabetic ulcer . The patient had debridement. As per the patient no further surgical intervention is planned this admission.. 2. Coronary artery disease. History of SD. History of coronary bypass graft surgery. Patient with no anginal symptoms.. History of paroxysmal atrial fibrillation. Status post in sinus rhythm status post ablation. Note patient is on Cordarone and Eliquis. 3. Hypertension: Blood pressures well controlled 4. Diabetes mellitus: Continue antidiabetic treatment and current Accu-Chek regimen. 5. Hyperlipidemia: Continue statin. Medications reviewed medication and management plan discussed with Dr. Gutierrez. Medical decision making is of moderate complexity. The patient being discharged. He will follow-up with his upkeep worker. Will sign off. 40 minutes spent on this patient with more than 50% of time spent in direct patient care.
[2019-05-16] MEDS: PIPERACILLIN SODIUM/TAZOBACTAM 3.375 GM in NORMAL SALINE 100 ML IV SCH ×2 (04:49→10:01)
[2019-05-16 04:54] LABS: ABSOLUTE BASOPHILS # (AUTO) 0.1 10^3/uL (0.0-0.2); ABSOLUTE EOSINOPHILS # (AUTO) 0.3 10^3/uL (0.0-0.6); ABSOLUTE LYMPHOCYTES (AUTO) 1.3 10^3/uL (0.5-4.7); ABSOLUTE MONOCYTES (AUTO) 0.7 10^3/uL (0.1-1.4); ABSOLUTE NEUT (AUTO) 5.1 10^3/uL (1.7-8.2); BASOPHILS % (AUTO) 1.2 % (0-2); EOSINOPHILS % (AUTO) 3.7 % (0-6); HEMATOCRIT 34.8 % (37.9-51.0); HEMOGLOBIN 11.7 g/dL (13.5-17.0); LYMPHOCYTES % (AUTO) 17.2 % (13-45); MEAN CORPUSCULAR HEMOGLOBIN 28.4 pg (27.0-33.4); MEAN CORPUSCULAR HGB CONC 33.7 g/dL (32.0-36.0); MEAN CORPUSCULAR VOLUME 84 fl (80-97); MONOCYTES % (AUTO) 9.1 % (3-13); PLATELET COUNT 309 10^3/uL (150-450); RED BLOOD COUNT 4.13 10^6/uL (4.35-5.55); RED CELL DISTRIBUTION WIDTH 14.1 % (11.5-14.0); SEGMENTED NEUTROPHILS % (AUTO) 68.8 % (42-78); TOTAL CELLS COUNTED % (AUTO) 100 %; WHITE BLOOD COUNT 7.4 10^3/uL (4.0-10.5)
[2019-05-16 05:11] LABS: ANION GAP 8 (5-19); BLOOD UREA NITROGEN 14 mg/dL (7-20); CALCIUM 8.7 mg/dL (8.4-10.2); CARBON DIOXIDE 26 mmol/L (22-30); CHLORIDE 104 mmol/L (98-107); GLUCOSE 166 mg/dL (75-110); POTASSIUM 4.5 mmol/L (3.6-5.0)
[2019-05-16] MEDS: INSULIN LISPRO 100 UNIT/ML 3 ML VIAL SUBCUT SCH ×2 (07:48→12:09)
[2019-05-16] MEDS: FUROSEMIDE 20 MG TABLET PO SCH (07:48)
--- NOTE | 2019-05-16 08:45 | PDOC PROGRESS REPORT ---
Subjective Progress Note for:: 05/16/19 Subjective:: Patient is currently doing well Underwent for the surgery as per discussed with the surgery wants to hold the Eliquis for another couple of days Is currently in a sinus rhythm Patient's denied any chest pain to than any shortness of the breath His blood sugars running 160 range currently does require a sliding scale coverage Reason For Visit: DM WOUND Physical Exam Vital Signs: Temp Pulse Resp BP Pulse Ox 98.7 F 70 18 132/72 H 94 05/16/19 07:45 05/16/19 07:45 05/16/19 07:45 05/16/19 07:45 05/16/19 07:45 Intake & Output 05/15/19 05/16/19 05/17/19 06:59 06:59 06:59 Intake Total 2654 2084 Output Total 800 1250 Balance 1854 834 Weight 135.5 kg 141.7 kg General appearance: PRESENT: no acute distress, well-developed, well-nourished Head exam: PRESENT: atraumatic, normocephalic Eye exam: PRESENT: conjunctiva pink, EOMI, PERRLA. ABSENT: scleral icterus Ear exam: PRESENT: normal external ear exam Mouth exam: PRESENT: moist, tongue midline Neck exam: PRESENT: full ROM. ABSENT: carotid bruit, JVD, lymphadenopathy, thyromegaly Respiratory exam: PRESENT: clear to auscultation xochitl Cardiovascular exam: PRESENT: RRR. ABSENT: diastolic murmur, rubs, systolic murmur Vascular exam: PRESENT: normal capillary refill GI/Abdominal exam: PRESENT: normal bowel sounds, soft. ABSENT: distended, guarding, mass, organolmegaly, rebound, tenderness Rectal exam: PRESENT: deferred Additional comments: Right lower extremity dressing is intact Neurological exam: PRESENT: alert, awake, oriented to person, oriented to place, oriented to time, oriented to situation, CN II-XII grossly intact. ABSENT: motor sensory deficit Psychiatric exam: PRESENT: appropriate affect, normal mood. ABSENT: homicidal ideation, suicidal ideation Skin exam: PRESENT: dry, intact, warm. ABSENT: cyanosis, rash Results Laboratory Results: 05/16/19 03:58 05/16/19 03:58 05/16/19 05/16/19 03:58 03:58 WBC 7.4 RBC 4.13 L Hgb 11.7 L Hct 34.8 L MCV 84 MCH 28.4 MCHC 33.7 RDW 14.1 H Plt Count 309 Seg Neutrophils % 68.8 Sodium 138.1 Potassium 4.5 Chloride 104 Carbon Dioxide 26 Anion Gap 8 BUN 14 Creatinine 0.80 Est GFR ( Amer) > 60 Glucose 166 H Calcium 8.7 Impressions: Foot X-Ray 05/13/19 17:16 IMPRESSION: NEGATIVE STUDY OF THE RIGHT FOOT. NO RADIOGRAPHIC EVIDENCE OF ACUTE INJURY. Assessment & Plan - Diagnosis (1) Diabetic foot infection Is this a current diagnosis for this admission?: Yes Plan: Status post surgery currently follow with the surgeon will wait for further e valuations today postop day #1 (2) Type 2 diabetes mellitus Qualifiers: Diabetes mellitus [facility] insulin use: with ferry terminal agent use Is this a current diagnosis for this admission?: Yes Plan: Patient's blood sugar is running under control I think patients just need a sliding scale while in the hospitals (3) Hypertension Qualifiers: Hypertension type: essential hypertension Qualified Code(s): I10 - Essential (primary) hypertension Is this a current diagnosis for this admission?: Yes Plan: Continues to current medications (4) Atrial fibrillation Qualifiers: Atrial fibrillation type: chronic Qualified Code(s): I48.2 - Chronic atrial fibrillation Is this a current diagnosis for this admission?: Yes Plan: Currently in a sinus rhythms with continues to hold the Eliquis for couple of days as per surgeon request restarted on a Sunday (5) Hyperlipidemia Qualifiers: Hyperlipidemia type: unspecified Qualified Code(s): E78.5 - Hyperlipidemia, unspecified Is this a current diagnosis for this admission?: Yes (6) Coronary artery disease Qualifiers: Coronary Disease-Associated Artery/Lesion type: bypass graft Associated angina: without angina Is this a current diagnosis for this admission?: Yes Plan: Currently all stable - Time Time Spent with patient: 25-34 minutes Medications reviewed and adjusted accordingly: Yes Anticipated discharge: Home Within: within 24 hours - Plan Summary Plan Summary: Continues to current medications patients definitely needs to see the wound care clinic
[2019-05-16] MEDS: ASPIRIN 81 MG TABLET, ENT COATED PO SCH (10:02)
[2019-05-16] MEDS: POTASSIUM CHLORIDE 10 MEQ CAPSULE.ER PO SCH (10:02)
[2019-05-16] MEDS: ENOXAPARIN SODIUM INJ 40 MG/0.4 ML DISP.SYRIN SUBCUT SCH (10:02)
[2019-05-16] MEDS: DOCUSATE SODIUM 100 MG CAPSULE PO SCH (10:02)
[2019-05-16] MEDS: LISINOPRIL 5 MG TABLET PO SCH (10:02)
[2019-05-16 10:41] VITALS: BP 122/64
--- NOTE | 2019-05-16 11:38 | PDOC PROGRESS REPORT ---
Subjective Progress Note for:: 05/16/19 Subjective:: no pains Reason For Visit: DM WOUND Physical Exam Vital Signs: Temp Pulse Resp BP Pulse Ox 98.7 F 70 18 122/64 94 05/16/19 10:35 05/16/19 10:35 05/16/19 10:35 05/16/19 10:35 05/16/19 10:35 Intake & Output 05/15/19 05/16/19 05/17/19 06:59 06:59 06:59 Intake Total 2654 2084 Output Total 800 1250 Balance 1854 834 Weight 135.5 kg 141.7 kg Exam: Right foot debridement site looks clean and dry. Swelling of foot and leg subsiding Results Laboratory Results: 05/16/19 03:58 05/16/19 03:58 05/16/19 05/16/19 03:58 03:58 WBC 7.4 RBC 4.13 L Hgb 11.7 L Hct 34.8 L MCV 84 MCH 28.4 MCHC 33.7 RDW 14.1 H Plt Count 309 Seg Neutrophils % 68.8 Sodium 138.1 Potassium 4.5 Chloride 104 Carbon Dioxide 26 Anion Gap 8 BUN 14 Creatinine 0.80 Est GFR ( Amer) > 60 Glucose 166 H Calcium 8.7 Impressions: Foot X-Ray 05/13/19 17:16 IMPRESSION: NEGATIVE STUDY OF THE RIGHT FOOT. NO RADIOGRAPHIC EVIDENCE OF ACUTE INJURY. Assessment & Plan - Diagnosis (1) Diabetic foot infection Is this a current diagnosis for this admission?: Yes - Time Time Spent with patient: 15-24 minutes - Plan Summary Plan Summary: Okay to discharge patient today on p.o. Bactrim. Preliminary Gram stain of the culture from the right foot from yesterday showed gram positive cocci and gram-positive rods. Patient given a prescription for Bactrim. Patient to be followed up in the wound care center in a week or 2 and have the visiting nurse to check the wound on every other day basis for the next 2 weeks.
--- NOTE | 2019-05-16 12:35 | PDOC DISCHARGE SUMMARY ---
Impression - Admit/DC Date/PCP Admission Date/Primary Care Provider: 05/13/19 19:50 VIGNESH MEADE MD Discharge Date: 05/16/19 - Discharge Diagnosis (1) Diabetic foot infection Is this a current diagnosis for this admission?: Yes (2) Type 2 diabetes mellitus Is this a current diagnosis for this admission?: Yes (3) Hypertension Is this a current diagnosis for this admission?: Yes (4) Atrial fibrillation Is this a current diagnosis for this admission?: Yes (5) Hyperlipidemia Is this a current diagnosis for this admission?: Yes (6) Coronary artery disease Is this a current diagnosis for this admission?: Yes - Assessment Summary: Patient was admitted for the diabetic foot wound infections patient at this point underwent further debridement Patient's other medical problem was all stable Seen by the general surgery discharge home with home health and wound care and p.o. Bactrim By the cardiology all stable Is all blood work is stable discuss with the patient's hold the Eliquis for the next 48 hours restart from Sunday - Additional Information Resuscitation Status: Full Code Discharge Diet: As Tolerated Discharge Activity: Activity As Tolerated Referrals: [facility] [Outside] WOUND CARE [Outside] - 05/26/19 1:00 pm Home Medications: Amiodarone HCl [Cordarone 200 mg Tablet] 200 mg PO QHS 05/13/19 Apixaban [Eliquis 5 mg Tablet] 5 mg PO Q12 05/13/19 Aspirin [Lo-Dose Aspirin EC] 81 mg PO DAILY 05/13/19 Atorvastatin Calcium [Lipitor 40 mg Tablet] 40 mg PO DAILY 05/13/19 Furosemide [Lasix 20 mg Tablet] 20 mg PO QAM 05/13/19 Hum Insulin NPH/Reg Insulin Hm [Novolin 70-30 100 Unit/Ml Vial] 0 unit SQ .SLDSCALE 05/13/19 Lisinopril [Prinivil 2.5 mg Tablet] 2.5 mg PO DAILY 05/13/19 Metoprolol Tartrate [Lopressor 25 mg Tablet] 25 mg PO QHS 05/13/19 Potassium Chloride [Klor-Con 10 Meq Capsule ER] 10 meq PO DAILY 05/13/19 History of Present Illiness History of Present Illness: KIA LOREDO is a 63 year old male This is a 63-year-old male with a history of the type 2 diabetes history of the hypertension's hyperlipidemia history of the coronary artery disease status post bypass surgery in June status post atrial fibrillation status post ablations currently follow with the Dr. Puentes at [place] came to the emergency departments with the noticed the ulcers in the right foot and increasing the swelling Patient's denied any fever but complaining of chills no chest pain no short of breath In the emergency department patient's all blood work is stable patient has some low-grade fever at this point surgery suggest to put on IV antibiotics When I saw the patient on the floor denied any chest pain no short of breath no other symptoms Patient is currently seen by Dr. Puentes assistant to the ceo 1 month back was all stable Currently on Eliquis due to the A. fib surgery wants to currently hold the Eliquis due to the potentially may be patients need a surgical debridement Physical Exam Vital Signs: Temp Pulse Resp BP Pulse Ox 98.7 F 70 18 122/64 94 05/16/19 10:35 05/16/19 10:35 05/16/19 10:35 05/16/19 10:35 05/16/19 10:35 Intake & Output 05/15/19 05/16/19 05/17/19 06:59 06:59 06:59 Intake Total 2654 2084 100 Output Total 800 1250 Balance 1854 834 100 Weight 135.5 kg 141.7 kg Results Laboratory Results: WBC 7.4 10^3/uL (4.0-10.5) 05/16/19 03:58 RBC 4.13 10^6/uL (4.35-5.55) L 05/16/19 03:58 Hgb 11.7 g/dL (13.5-17.0) L 05/16/19 03:58 Hct 34.8 % (37.9-51.0) L 05/16/19 03:58 MCV 84 fl (80-97) 05/16/19 03:58 MCH 28.4 pg (27.0-33.4) 05/16/19 03:58 MCHC 33.7 g/dL (32.0-36.0) 05/16/19 03:58 RDW 14.1 % (11.5-14.0) H 05/16/19 03:58 Plt Count 309 10^3/uL (150-450) 05/16/19 03:58 Lymph % (Auto) 17.2 % (13-45) 05/16/19 03:58 [place] % (Auto) 9.1 % (3-13) 05/16/19 03:58 Eos % (Auto) 3.7 % (0-6) 05/16/19 03:58 Baso % (Auto) 1.2 % (0-2) 05/16/19 03:58 Absolute Neuts (auto) 5.1 10^3/uL (1.7-8.2) 05/16/19 03:58 Absolute Lymphs (auto) 1.3 10^3/uL (0.5-4.7) 05/16/19 03:58 Absolute Monos (auto) 0.7 10^3/uL (0.1-1.4) 05/16/19 03:58 Absolute Eos (auto) 0.3 10^3/uL (0.0-0.6) 05/16/19 03:58 Absolute Basos (auto) 0.1 10^3/uL (0.0-0.2) 05/16/19 03:58 Seg Neutrophils % 68.8 % (42-78) 05/16/19 03:58 Sodium 138.1 mmol/L (137-145) 05/16/19 03:58 Potassium 4.5 mmol/L (3.6-5.0) 05/16/19 03:58 Chloride 104 mmol/L (98-107) 05/16/19 03:58 Carbon Dioxide 26 mmol/L (22-30) 05/16/19 03:58 Anion Gap 8 (5-19) 05/16/19 03:58 BUN 14 mg/dL (7-20) 05/16/19 03:58 Creatinine 0.80 mg/dL (0.52-1.25) 05/16/19 03:58 Est GFR ( Amer) > 60 (>60) 05/16/19 03:58 Est GFR (MDRD) Non-Af > 60 (>60) 05/16/19 03:58 Glucose 166 mg/dL (75-110) H 05/16/19 03:58 POC Glucose 168 mg/dL (70-110) H 05/16/19 06:04 Calcium 8.7 mg/dL (8.4-10.2) 05/16/19 03:58 Total Bilirubin 0.5 mg/dL (0.2-1.3) 05/13/19 17:34 Direct Bilirubin 0.1 mg/dL (0.0-0.4) 05/13/19 17:34 Neonat Total Bilirubin Not Reportable 05/13/19 17:34 Neonat Direct Bilirubin Not Reportable 05/13/19 17:34 Neonat Indirect Bili Not Reportable 05/13/19 17:34 AST 23 U/L (17-59) 05/13/19 17:34 ALT 14 U/L (<50) 05/13/19 17:34 Alkaline Phosphatase 58 U/L (38-126) 05/13/19 17:34 Total Protein 6.7 g/dL (6.3-8.2) 05/13/19 17:34 Albumin 3.5 g/dL (3.5-5.0) 05/13/19 17:34 Urine Color YELLOW 05/14/19 06:10 Urine Appearance SLIGHTLY-CLOUDY 05/14/19 06:10 Urine pH 6.0 (5.0-9.0) 05/14/19 06:10 Ur Specific Cardinal 1.016 05/14/19 06:10 Urine Protein NEGATIVE mg/dL (NEGATIVE) 05/14/19 06:10 Urine Glucose (UA) NEGATIVE mg/dL (NEGATIVE) 05/14/19 06:10 Urine Ketones NEGATIVE mg/dL (NEGATIVE) 05/14/19 06:10 Urine Blood LARGE (NEGATIVE) H 05/14/19 06:10 Urine Nitrite NEGATIVE (NEGATIVE) 05/14/19 06:10 Urine Bilirubin NEGATIVE (NEGATIVE) 05/14/19 06:10 Urine Urobilinogen 4.0 mg/dL (<2.0) H 05/14/19 06:10 Ur Leukocyte Esterase LARGE (NEGATIVE) H 05/14/19 06:10 Urine WBC (Auto) 7 /HPF 05/14/19 06:10 Urine RBC (Auto) 151 /HPF 05/14/19 06:10 Urine Bacteria (Auto) TRACE /HPF 05/14/19 06:10 Urine WBC Clumps FEW /HPF 05/14/19 06:10 Squamous Epi Cells Auto 3 /HPF 05/14/19 06:10 Urine Mucus (Auto) RARE /LPF 05/14/19 06:10 Urine Ascorbic Acid NEGATIVE (NEGATIVE) 05/14/19 06:10 Impressions: Foot X-Ray 05/13/19 17:16 IMPRESSION: NEGATIVE STUDY OF THE RIGHT FOOT. NO RADIOGRAPHIC EVIDENCE OF ACUTE INJURY. Stroke Is this a Stroke Patient?: No Acute Heart Failure - Is this a Heart Failure Patient?: No
== END 2019-05-16 12:35 | disposition home health service (06) | DRG 624 ==
LOC: ER 16:43 → EH 19:50 → 4S 21:52
PROVIDERS: ADMIT Family Medicine; ATTEND Family Medicine
PROC: 0JBQ0ZZ Excision of Right Foot Subcutaneous Tissue and Fascia, Open Approach (ICD-10-PCS; principal; 2019-05-15 13:30)
DX: E11.621 Type 2 diabetes mellitus with foot ulcer (principal); E66.01 Morbid (severe) obesity due to excess calories; I48.0 Paroxysmal atrial fibrillation; E11.51 Type 2 diabetes mellitus with diabetic peripheral angiopathy without gangrene; L97.519 Non-pressure chronic ulcer of other part of right foot with unspecified severity; I25.10 Atherosclerotic heart disease of native coronary artery without angina pectoris; I10 Essential (primary) hypertension; E78.5 Hyperlipidemia, unspecified; B96.89 Other specified bacterial agents as the cause of diseases classified elsewhere; Z95.1 Presence of aortocoronary bypass graft; Z79.01 Long term (current) use of anticoagulants; I25.2 Old myocardial infarction; Z98.1 Arthrodesis status; Z83.3 Family history of diabetes mellitus; Z82.49 Family history of ischemic heart disease and other diseases of the circulatory system; Z79.82 Long term (current) use of aspirin; Z79.4 Long term (current) use of insulin; Z88.2 Allergy status to sulfonamides; Z88.8 Allergy status to other drugs, medicaments and biological substances; Z87.891 Personal history of nicotine dependence
CPT/HCPCS: 00400; 36415; 80048; 80053; 81001; 82962; 85025; 87040; 87070; 87075; 87077; 87186; 87205; 93005; 93010; 93926; 93971; 99285; J1650; J1815; J2250; J2543; J2704; J3010; J3490; J7050

== ENCOUNTER → 2019-06-23 | Outpatient (CLI) | payer MEDICARE, MEDICAID ==
[2019-06-23 15:59] LABS: ABSOLUTE EOSINOPHILS # (AUTO) 0.2 10^3/uL (0.0-0.6); ABSOLUTE LYMPHOCYTES (AUTO) 1.5 10^3/uL (0.5-4.7); ABSOLUTE MONOCYTES (AUTO) 0.7 10^3/uL (0.1-1.4); ABSOLUTE NEUT (AUTO) 4.7 10^3/uL (1.7-8.2); BASOPHILS % (AUTO) 0.6 % (0-2); EOSINOPHILS % (AUTO) 3.3 % (0-6); HEMATOCRIT 35.4 % (37.9-51.0); HEMOGLOBIN 11.9 g/dL (13.5-17.0); LYMPHOCYTES % (AUTO) 21.2 % (13-45); MEAN CORPUSCULAR HEMOGLOBIN 27.9 pg (27.0-33.4); MEAN CORPUSCULAR HGB CONC 33.5 g/dL (32.0-36.0); MEAN CORPUSCULAR VOLUME 83 fl (80-97); MONOCYTES % (AUTO) 9.2 % (3-13); PLATELET COUNT 308 10^3/uL (150-450); RED BLOOD COUNT 4.25 10^6/uL (4.35-5.55); RED CELL DISTRIBUTION WIDTH 14.7 % (11.5-14.0); SEGMENTED NEUTROPHILS % (AUTO) 65.7 % (42-78); TOTAL CELLS COUNTED % (AUTO) 100 %; WHITE BLOOD COUNT 7.2 10^3/uL (4.0-10.5)
[2019-06-23 16:26] LABS: ALBUMIN 3.6 g/dL (3.5-5.0); ALKALINE PHOSPHATASE 75 U/L (38-126); ANION GAP 10 (5-19); ASPARTATE AMINO TRANSFERASE 20 U/L (17-59); BILIRUBIN,DIRECT 0.2 mg/dL (0.0-0.4); BILIRUBIN,TOTAL 0.5 mg/dL (0.2-1.3); BLOOD UREA NITROGEN 15 mg/dL (7-20); C-REACTIVE PROTEIN 24.4 mg/L (<10.0); CARBON DIOXIDE 28 mmol/L (22-30); CHLORIDE 103 mmol/L (98-107); GLUCOSE 169 mg/dL (75-110); POTASSIUM 4.3 mmol/L (3.6-5.0); TOTAL PROTEIN 7.1 g/dL (6.3-8.2)
--- NOTE | 2019-06-23 16:29 | RADIOLOGY REPORT (SQ) ---
EXAM DESCRIPTION: FOOT RIGHT COMPLETE COMPLETED DATE/TIME: 06/23/2019 3:42 pm REASON FOR STUDY: NON-PRS CHRONIC ULCER OTH PRT RT FOOT W FAT LAYER EXPOSED L97.522 NON-PRS CHRONIC ULCER OTH PRT LEFT FOOT W FAT LAYER E11.621 TYPE 2 DIABETES MELLITUS WITH FOOT ULCER COMPARISON: 05/13/2019. NUMBER OF VIEWS: Three views. TECHNIQUE: AP, lateral and oblique radiographic images acquired of the right foot. LIMITATIONS: Overlying bandage material. FINDINGS: MINERALIZATION: Normal. BONES: No acute fracture or dislocation. No worrisome bone lesions. JOINTS: No effusions. SOFT TISSUES: No soft tissue swelling. No foreign body. OTHER: No other significant finding. IMPRESSION: No evidence of osteomyelitis. TECHNICAL DOCUMENTATION: JOB ID: [id number] [email or web address]- All Rights Reserved Reading location - IP/workstation name: [email or web address]
[2019-06-23 16:35] LABS: ERYTHROCYTE SEDIMENTATION RATE 77 mm/hr (0-20)
== END ==
LOC: WC 14:57
PROVIDERS: ATTEND Preventive Medicine Undersea and Hyperbaric Medicine
DX: E11.621 Type 2 diabetes mellitus with foot ulcer (principal); L97.522 Non-pressure chronic ulcer of other part of left foot with fat layer exposed
CPT/HCPCS: 36415; 80053; 83036; 85025; 85652; 86140

== ENCOUNTER → 2019-07-14 | Day surgery (SDC) | payer MEDICAID, MEDICARE ==
[~2019-07-14] MED LIST: ERTAPENEM SODIUM 2 GM in NORMAL SALINE 100 ML IV PRN; NORMAL SALINE 10 ML SDV (AFTER EACH USE) IV PRN; NORMAL SALINE 10 ML SDV (SCHEDULED) IV SCH
[2019-07-14 11:40] VITALS: BP 123/70
--- NOTE | 2019-07-14 11:44 | RADIOLOGY REPORT (SQ) ---
EXAM DESCRIPTION: PICC INSERTION; FLUORO/CV PLACEMENT; U/S GUIDE FOR VASCULAR ACCESS COMPLETED DATE/TIME: 07/14/2019 11:20 am REASON FOR STUDY: NON-PRS CHRONIC ULCER OTH PRT RIGHT FOOT W NECROS MUSCLE(L97.513) L97.513 NON-PRS CHRONIC ULCER OTH PRT RIGHT FOOT W NECROS MU COMPARISON: AP chest 07/12/2018 FLUOROSCOPY TIME: 28 seconds 5 digital fluoroscopic and 1 ultrasound images saved to PACS. TECHNIQUE: Fluoroscopic and ultrasound guided PICC placement. LIMITATIONS: None. PROCEDURE: After written consent and assessment were obtained, the patient was brought into the fluo roscopy room and placed supine on the table. Ultrasound evaluation of potential access sites were per formed. After successfully identifying a patent left basilic vein, the left arm was prepped and drape d in a sterile fashion along with the ultrasound probe. The entry site was anesthetized with 1% lidoc lei. A 21 gauge 7 cm needle was advanced through the skin and into the basilic vein under live ultra sound guidance. An ultrasound image was saved to PACS confirming access site. A .018 guide wire was then inserted through the needle and into the venous system. The needle was then removed and an 11 b lade scalpel was used to make a 1cm skin incision. A 5 fr peel-away sheath was advanced over the wir e and into the venous system. A measurement was then made using the existing wire and live fluoroscop ic guidance. The wire was then removed and trimmed. The PICC was advanced through the peel-away sheat h and into the venous system. The peel-away sheath was removed and the catheter was adhered to the pa tients arm with a stat lock. The catheter was then aspirated and flushed and a sterile bandage was pl aced over the access site. A fluoroscopic spot image was saved to PACS confirming the catheter tip w ithin the superior vena cava. IMPRESSION: SUCCESSFUL PLACEMENT OF A 5 FR DUAL LUMEN 48 CM PICC IN THE LEFT BASILIC VEIN. COMMENT: Patient medication list reviewed: Yes- Quality ID# 130:Eligible professional attests to doc umenting in the medical record they obtained, updated, or reviewed the patient's current medications. . Quality ID 145: Final reports for procedures using fluoroscopy that document radiation exposure yesenia memo, or exposure time and number of fluorographic images (if radiation exposure indices are not avail able) Quality ID #76: The patient was prepped and draped using maximum sterile barrier technique including cap, mask, sterile gown, sterile gloves, a large sterile sheet, hand hygiene, and 2% Chlorhexidine fo r cutaneous antisepsis. When ultrasound is used, sterile ultrasound techniques are followed requiring sterile gel and sterile probes. TECHNICAL DOCUMENTATION: JOB ID: [id number] [email or web address]- All Rights Reserved rev Reading location - IP/workstation name: [email or web address]
== END ==
LOC: RAD 10:19
PROVIDERS: ATTEND Preventive Medicine Undersea and Hyperbaric Medicine
DX: L97.513 Non-pressure chronic ulcer of other part of right foot with necrosis of muscle (principal)
CPT/HCPCS: 36569; 96365; 77001; 76937; C1769; J1335; J7050; J1642

== ENCOUNTER → 2019-07-31 | Outpatient (CLI) | payer MEDICARE, MEDICAID ==
[2019-07-31 14:31] LABS: ABSOLUTE EOSINOPHILS # (AUTO) 0.2 10^3/uL (0.0-0.6); ABSOLUTE LYMPHOCYTES (AUTO) 1.6 10^3/uL (0.5-4.7); ABSOLUTE MONOCYTES (AUTO) 0.5 10^3/uL (0.1-1.4); ABSOLUTE NEUT (AUTO) 4.2 10^3/uL (1.7-8.2); BASOPHILS % (AUTO) 0.7 % (0-2); EOSINOPHILS % (AUTO) 3.8 % (0-6); HEMATOCRIT 37.5 % (37.9-51.0); HEMOGLOBIN 12.5 g/dL (13.5-17.0); LYMPHOCYTES % (AUTO) 23.7 % (13-45); MEAN CORPUSCULAR HEMOGLOBIN 27.9 pg (27.0-33.4); MEAN CORPUSCULAR HGB CONC 33.4 g/dL (32.0-36.0); MEAN CORPUSCULAR VOLUME 83 fl (80-97); MONOCYTES % (AUTO) 7.8 % (3-13); PLATELET COUNT 268 10^3/uL (150-450); RED CELL DISTRIBUTION WIDTH 15.5 % (11.5-14.0); TOTAL CELLS COUNTED % (AUTO) 100 %; WHITE BLOOD COUNT 6.6 10^3/uL (4.0-10.5)
[2019-07-31 14:49] LABS: ALBUMIN 3.7 g/dL (3.5-5.0); ALKALINE PHOSPHATASE 89 U/L (38-126); ANION GAP 10 (5-19); ASPARTATE AMINO TRANSFERASE 24 U/L (17-59); BILIRUBIN,DIRECT 0.1 mg/dL (0.0-0.4); BILIRUBIN,TOTAL 0.7 mg/dL (0.2-1.3); BLOOD UREA NITROGEN 13 mg/dL (7-20); CALCIUM 9.2 mg/dL (8.4-10.2); CARBON DIOXIDE 29 mmol/L (22-30); CHLORIDE 101 mmol/L (98-107); GLUCOSE 125 mg/dL (75-110); POTASSIUM 4.3 mmol/L (3.6-5.0); TOTAL PROTEIN 7.5 g/dL (6.3-8.2)
[2019-07-31 15:19] LABS: ERYTHROCYTE SEDIMENTATION RATE 38 mm/hr (0-20)
--- NOTE | 2019-07-31 15:23 | RADIOLOGY REPORT (SQ) ---
EXAM DESCRIPTION: FOOT RIGHT COMPLETE COMPLETED DATE/TIME: 07/31/2019 2:18 pm REASON FOR STUDY: NON-PRESSURE CHRONIC ULCER L97.513 NON-PRS CHRONIC ULCER OTH PRT RIGHT FOOT W NEC ROS MU COMPARISON: 06/23/2019. NUMBER OF VIEWS: Three views. TECHNIQUE: AP, lateral and oblique without weight bearing radiographic images acquired of the right foot. LIMITATIONS: None. FINDINGS: MINERALIZATION: Normal. BONES: No acute fracture or dislocation. No worrisome bone lesions. No significant osteophytes. JOINTS: No erosions. No ellie-articular osteopenia. No chondrocalcinosis. SOFT TISSUES: Soft tissue swelling. No calcifications. OTHER: No other significant finding. IMPRESSION: SOFT TISSUE SWELLING. NO SIGNIFICANT BONY FINDINGS. TECHNICAL DOCUMENTATION: JOB ID: [id number] [employer]- All Rights Reserved Reading location - IP/workstation name: [email or web address]
[2019-07-31 15:26] LABS: C-REACTIVE PROTEIN 9.7 mg/L (<10.0)
== END ==
LOC: WC 13:52
PROVIDERS: ATTEND Preventive Medicine Undersea and Hyperbaric Medicine
DX: L97.513 Non-pressure chronic ulcer of other part of right foot with necrosis of muscle (principal)
CPT/HCPCS: 36415; 80053; 85025; 85652; 86140

== ENCOUNTER 2019-08-10 11:10 | Emergency (ER) | payer MEDICARE, MEDICAID ==
--- NOTE | 2019-08-10 11:31 | ER Document Report ---
ED Medical Screen (RME) - General Chief Complaint: Urinary Problem Stated Complaint: BLOOD IN URINE Time Seen by Provider: 08/10/19 11:21 Primary Care Provider: RENUKA MCGINNIS DPM [Primary Care Provider] - Follow up as needed Information source: Patient Notes: Patient presents complaining of hematuria dysuria and frequency that started this morning. Patient denies any abdominal pain or back pain. Patient does take Eliquis. Patient had recently been on antibiotics for a diabetic foot wound. Patient finished the IV antibiotics 2 weeks ago. Patient does still have his PICC line in place. I have greeted and performed a rapid initial assessment of this patient. A comprehensive ED assessment and evaluation of the patient, analysis of test results and completion of the medical decision making process will be conducted by additional ED providers. TRAVEL OUTSIDE OF THE [place] IN LAST 30 DAYS: No - Related Data Allergies/Adverse Reactions: cortisone [Cortisone] Allergy (Verified 08/10/19 11:21) Sulfa (Sulfonamide Antibiotics) Allergy (Verified 08/10/19 11:21) Past Medical History - Social History Chew tobacco use (# tins/day): No Frequency of alcohol use: None Drug Abuse: None - Past Medical History Cardiac Medical History: Reports: Hx Atrial Fibrillation, Hx Coronary Artery Disease, Hx Heart Attack, Hx Hypercholesterolemia, Hx Hypertension, Hx Per ipheral Vascular Disease Endocrine Medical History: Reports: Hx Diabetes Mellitus Type 1, Hx Diabetes Mellitus Type 2 Renal/ Medical History: Denies: Hx Peritoneal Dialysis Past Surgical History: Reports: Hx Coronary Artery Bypass Graft, Hx Orthopedic Surgery - Spinal fusion, Hx Vascular Surgery, Other - A Fib ablation - Immunizations Hx Diphtheria, Pertussis, Tetanus Vaccination: Yes Physical Exam - Vital signs Vitals: Temp Pulse Resp BP Pulse Ox 97.9 F 91 16 157/81 H 98 08/10/19 11:13 08/10/19 11:13 08/10/19 11:13 08/10/19 11:13 08/10/19 11:13 - General General appearance: Alert - Back Back: No: CVA tenderness Course - Vital Signs Vital signs: Temp Pulse Resp BP Pulse Ox 97.9 F 91 16 157/81 H 98 08/10/19 11:21 08/10/19 11:13 08/10/19 11:21 08/10/19 11:13 08/10/19 11:21 Doctor's Discharge - Discharge Referrals: RENUKA MCGINNIS DPM [Primary Care Provider] - Follow up as needed
[2019-08-10 12:22] LABS: ABSOLUTE BASOPHILS # (AUTO) 0.1 10^3/uL (0.0-0.2); ABSOLUTE EOSINOPHILS # (AUTO) 0.2 10^3/uL (0.0-0.6); ABSOLUTE LYMPHOCYTES (AUTO) 1.1 10^3/uL (0.5-4.7); ABSOLUTE MONOCYTES (AUTO) 0.7 10^3/uL (0.1-1.4); ABSOLUTE NEUT (AUTO) 6.5 10^3/uL (1.7-8.2); BASOPHILS % (AUTO) 0.9 % (0-2); EOSINOPHILS % (AUTO) 2.4 % (0-6); HEMATOCRIT 37.5 % (37.9-51.0); HEMOGLOBIN 12.4 g/dL (13.5-17.0); LYMPHOCYTES % (AUTO) 12.9 % (13-45); MEAN CORPUSCULAR HEMOGLOBIN 27.4 pg (27.0-33.4); MEAN CORPUSCULAR HGB CONC 32.9 g/dL (32.0-36.0); MEAN CORPUSCULAR VOLUME 83 fl (80-97); MONOCYTES % (AUTO) 8.3 % (3-13); PLATELET COUNT 306 10^3/uL (150-450); RED BLOOD COUNT 4.51 10^6/uL (4.35-5.55); RED CELL DISTRIBUTION WIDTH 15.9 % (11.5-14.0); SEGMENTED NEUTROPHILS % (AUTO) 75.5 % (42-78); TOTAL CELLS COUNTED % (AUTO) 100 %; WHITE BLOOD COUNT 8.5 10^3/uL (4.0-10.5)
--- NOTE | 2019-08-10 12:22 | ER Document Report ---
ED General - General Chief Complaint: Urinary Problem Stated Complaint: BLOOD IN URINE Time Seen by Provider: 08/10/19 11:21 Primary Care Provider: OLI MURILLO MD [NO LOCAL MD] - Follow up in 1 week RENUKA MCGINNIS DPM [ACTIVE STAFF] - Follow up as needed TRAVEL OUTSIDE OF THE [place] IN LAST 30 DAYS: No - Related Data Allergies/Adverse Reactions: cortisone [Cortisone] Allergy (Verified 08/10/19 11:21) Sulfa (Sulfonamide Antibiotics) Allergy (Verified 08/10/19 11:21) Past Medical History - General Information source: Patient - Social History Smoking Status: Former Smoker Chew tobacco use (# tins/day): No Frequency of alcohol use: None Drug Abuse: None Family History: Reviewed & Not Pertinent Patient has suicidal ideation: No Patient has homicidal ideation: No - Past Medical History Cardiac Medical History: Reports: Hx Atrial Fibrillation, Hx Coronary Artery Disease, Hx Heart Attack, Hx Hypercholesterolemia, Hx Hypertension, Hx Peripheral Vascular Disease Endocrine Medical History: Reports: Hx Diabetes Mellitus Type 1, Hx Diabetes Mellitus Type 2 Renal/ Medical History: Denies: Hx Peritoneal Dialysis Past Surgical History: Reports: Hx Coronary Artery Bypass Graft, Hx Orthopedic Surgery - Spinal fusion, Hx Vascular Surgery, Other - A Fib ablation - Immunizations Hx Diphtheria, Pertussis, Tetanus Vaccination: Yes Physical Exam - Vital signs Vitals: Temp Pulse Resp BP Pulse Ox 97.9 F 91 16 157/81 H 98 08/10/19 11:13 08/10/19 11:13 08/10/19 11:13 08/10/19 11:13 08/10/19 11:13 - Notes Notes: Presents emergency department complaining of a hematuria that started this morning. Also has some frequency and urgency but no actual dysuria. He has trouble getting his stream started also. He has had no abdominal pain nausea vomiting fevers or trauma. Patient denies any black stools or blood in his stools no frequent bruising no frequent nosebleeds. Past medical history seen for diabetes hypertension A. fib coronary artery disease and OH recently finished a course of antibiotics for a diabetic foot ulcer about 2 weeks ago Social history does not smoke or drink at all. Family history is noncontributory Review of systems pertinent positives and negatives in HPI otherwise all the systems were reviewed and acutely negative PHYSICIAN EXAM -vital signs are noted triage note and note from triage reviewed GENERAL: Well-appearing, well-nourished and in ____no acute distress__ HEAD: Atraumatic, normocephalic. EYES: Pupils equal round and reactive to light, extraocular movements intact, sclera anicteric, conjunctiva are normal. ENT: nares patent, oropharynx clear without exudates. Moist mucous membranes. NECK: supple without lymphadenopathy LUNGS: Breath sounds clear to auscultation bilaterally and equal. No wheezes rales or rhonchi. HEART: Irregularly irregular with a controlled ventricular rate ABDOMEN: Soft, nontender, normoactive bowel sounds. EXTREMITIES: No deformity, venous stasis changes bilaterally. +3 edema to the knee bilaterally which he says is chronic no palpable cords NEUROLOGICAL: No focal neurological deficits. Moves all extremities spontaneously and on command. Good motor strength in his feet PSYCH: Normal mood, normal affect. SKIN: Warm, Dry, normal turgor, no rashes or lesions noted. BACK-nontender in the midline Genital exam testes and epididymis are nontender. Penis without lesions there is a scant amount of blood at the meatus Differential diagnosis UTI coagulopathy urine retention Course - Re-evaluation Re-evalutation: 08/10/19 13:46 ED patient remained stable Aguilera catheter was inserted initially had some pink tinged fluid that cleared with irrigation Medical decision making patient presents with hematuria and some density. He is having trouble urinating. About the treatment options including a Aguilera versus Aguilera. He is comfortable with the Aguilera and I think is reasonable as I am concerned that he may develop some urinary retention. Plan at this time will be to discharge the patient home given urology follow-up in 1 week treated with Ceftin advised to drink plenty of fluids return if he is unable to urinate and will also need follow-up for his blood pressure I discussed results of laboratory findings and diagnostic test with patient/f naomie. The treatment plan was explained and I reviewed the discharge instructions with them. Questions were answered. The patient/family verbalizes understanding Dictation was done using voice recognition software. There may be some grammatical errors which are unintentional - Vital Signs Vital signs: Temp Pulse Resp BP Pulse Ox 98.1 F 82 20 152/82 H 98 08/10/19 13:25 08/10/19 13:25 08/10/19 13:25 08/10/19 13:25 08/10/19 13:25 - Laboratory Result Diagrams: 08/10/19 11:55 08/10/19 11:55 Laboratory results interpreted by me: 08/10/19 08/10/19 08/10/19 11:28 11:55 11:55 Hgb 12.4 L Hct 37.5 L RDW 15.9 H Lymph % (Auto) 12.9 L Glucose 153 H Urine Protein >=500 H Urine Glucose (UA) 50 H Urine Blood MODERATE H Discharge - Discharge Clinical Impression: Hematuria Qualifiers: Hematuria type: unspecified type Qualified Code(s): R31.9 - Hematuria, unspecified Disposition: HOME, SELF-CARE Additional Instructions: Urinary Tract Infection Your evaluation indicates that you have a urinary tract infection. This is due to germs growing in the bladder. This is a common problem. This infection usually responds quickly to antibiotics. Your antibiotic should be taken exactly as prescribed. Drink plenty of fluids -- three to four quarts a day. Occasionally, a bladder anesthetic will be prescribed to help stop the feeling of urgency until the antibiotic has a chance to clear the infection. This may cause your urine to be dark orange. Certain urine infections require a culture. If the doctor obtained a culture, the results will be back in two days. You should call to see if a change in treatment is needed. A repeat urinalysis after you finish treatment is often recommended. The physician will let you know if further testing is required. Call the doctor if you develop fever, chills, flank pain, inability to urinate, or blood in the urine. Hematuria Hematuria, or blood in your urine, can be caused by minor medical problems, such as a bladder infection, or by more serious medical conditions, such as kidney stones or even tumors of the bladder or kidney. If the cause of the hematuria is known (such as a bladder infection) and can be treated, it may not need further evaluation. If the cause is not known, it will usually require further evaluation by a specialist, such as a urologist. In particular, unexplained hematuria in the older patient must be evaluated to rule out a serious condition, such as a bladder or kidney tumor. If the hematuria worsens or you are passing clots and then are unable to urinate, you should be re-evaluated. A catheter may need to be placed in the bladder to permit passage of urine. If you develop high fever, severe pain, or other new or worsening symptoms, return to the Emergency Department for re- evaluation. Please review the discharge instructions, they will tell you about your disease/injury and what you need to return to the ED for Return to the ED if you feel worse or can follow-up with your family doctor Make sure you drink plenty of fluids Return if the catheter stops draining Follow-up with urology in [place] in 1 week BP 1 your blood pressure was elevated today needs to be rechecked again in 1 to 2 weeks to determine if need to be on medication or have your medications adjusted. Untreated hypertension can cause heart attack stroke and kidney failure Prescriptions: Cefuroxime Axetil [Ceftin 250 mg Tablet] 1 tab PO BID #14 tablet Forms: Elevated Blood Pressure Referrals: RENUKA MCGINNIS DPM [ACTIVE STAFF] - Follow up as needed OLI MURILLO MD [NO LOCAL MD] - Follow up in 1 week
[2019-08-10 12:23] LABS: APPEARANCE,URINE SLIGHTLY-CLOUDY; BILIRUBIN,URINE NEGATIVE (NEGATIVE); GLUCOSE, URINE 50 mg/dL (NEGATIVE); KETONES,URINE NEGATIVE (NEGATIVE); LEUKOCYTE ESTERASE,URINE NEGATIVE (NEGATIVE); NITRITE,URINE NEGATIVE (NEGATIVE); PROTEIN,URINE >=500 mg/dL (NEGATIVE); URINE SPECIFIC GRAVITY 1.026; UROBILINOGEN,URINE NEGATIVE mg/dL (<2.0)
[2019-08-10 12:24] LABS: COLOR,URINE RED
[2019-08-10 12:31] LABS: ALBUMIN 3.7 g/dL (3.5-5.0); ALKALINE PHOSPHATASE 78 U/L (38-126); ANION GAP 12 (5-19); ASPARTATE AMINO TRANSFERASE 23 U/L (17-59); BILIRUBIN,DIRECT 0.1 mg/dL (0.0-0.4); BILIRUBIN,TOTAL 0.8 mg/dL (0.2-1.3); BLOOD UREA NITROGEN 12 mg/dL (7-20); CALCIUM 9.2 mg/dL (8.4-10.2); CARBON DIOXIDE 27 mmol/L (22-30); CHLORIDE 101 mmol/L (98-107); GLUCOSE 153 mg/dL (75-110); POTASSIUM 4.2 mmol/L (3.6-5.0); TOTAL PROTEIN 7.4 g/dL (6.3-8.2)
[2019-08-10 13:31] VITALS: BP 152/82
== END 2019-08-10 13:42 | disposition home or self-care (01) ==
LOC: ER 11:10
DX: Z87.891 Personal history of nicotine dependence (principal); R39.89 Other symptoms and signs involving the genitourinary system; R60.0 Localized edema; I25.10 Atherosclerotic heart disease of native coronary artery without angina pectoris; I10 Essential (primary) hypertension; E11.51 Type 2 diabetes mellitus with diabetic peripheral angiopathy without gangrene; Z88.8 Allergy status to other drugs, medicaments and biological substances; Z88.2 Allergy status to sulfonamides
CPT/HCPCS: 36415; 51702; 80053; 81001; 85025; 87086; 99283

== ENCOUNTER → 2019-09-18 | Outpatient (CLI) | payer MEDICARE, MEDICAID ==
--- NOTE | 2019-09-18 11:42 | RADIOLOGY REPORT (SQ) ---
EXAM DESCRIPTION: CT ABD/PELVIS COMBO COMPLETED DATE/TIME: 09/18/2019 10:18 am REASON FOR STUDY: GROSS HEMATURIA R31.0 GROSS HEMATURIA COMPARISON: CT abdomen pelvis 01/17/2016 TECHNIQUE: CT scan of the abdomen and pelvis performed with and without intravenous contrast, and wi thout oral contrast. Contrasted imaging performed helical scanning technique and dynamic intravenous contrast injection. Images reviewed with lung, soft tissue, and bone windows. Reconstructed coronal a nd sagittal MPR images reviewed. Delayed images for evaluation of the urinary system also acquired. A ll images stored on PACS. All CT scanners at this facility use dose modulation, iterative reconstruction, and/or weight based d osing when appropriate to reduce radiation dose to as low as reasonably achievable (ALARA). [facility]: Dose Right [facility]: CareDose [facility]: Dose Right [facility]: Teradose 4D [facility]: Viewpoint CONTRAST TYPE AND DOSE: contrast/concentration: Isovue 350.00 mg/ml; Total Contrast Delivered: 100.0 ml; Total Saline Delivered: 72.0 ml RENAL FUNCTION: Creatinine 0.9 RADIATION DOSE: CT Rad equipment meets quality standard of care and radiation dose reduction techniq ues were employed. CTDIvol: 27.0 - 31.4 mGy. DLP: 4966 mGy-cm. . LIMITATIONS: None. FINDINGS: NON-CONTRASTED IMAGING: No urinary collecting system stones. POST-CONTRASTED IMAGING: LOWER CHEST: No significant findings. No nodules or infiltrates. LIVER: Normal size. No masses. No dilated ducts. SPLEEN: Normal size. No focal lesions. PANCREAS: No masses. No significant calcifications. No adjacent inflammation or peripancreatic fluid collections. Pancreatic duct not dilated. GALLBLADDER: No identified stones by CT criteria. No inflammatory changes to suggest cholecystitis. ADRENAL GLANDS: No significant masses or asymmetry. RIGHT KIDNEY AND URETER: No solid masses. 1 cm right upper pole renal cortical cyst, 3.3 cm right up per pole renal cortical cyst. No significant calcifications. No hydronephrosis or hydroureter. D elayed imaging of the right urinary collecting system demonstrates no gross masses or filling defects . LEFT KIDNEY AND URETER: No solid masses. A 10 x 12 cm cyst is present in the left upper pole with a single thin calcified septation on coronal image 61. This is unchanged from 2016 and represent pneum onic 2 lesion, benign. Additional 2 cm and 1 cm left lower pole renal cortical cysts. No significa nt calcifications. No hydronephrosis or hydroureter. AORTA AND VESSELS: No aneurysm. No dissection. Renal arteries, SMA, celiac without stenosis. RETROPERITONEUM: No retroperitoneal adenopathy, hemorrhage or masses. BOWEL AND PERITONEAL CAVITY: No masses or inflammatory changes. No free fluid or peritoneal masses. APPENDIX: Normal. PELVIS: No mass. No free fluid. Grossly normal urinary bladder, however, there is poor opacificatio n the bladder on the delayed images, subtle bladder mucosal lesion could be missed. ABDOMINAL WALL: No masses. No hernias. BONES: Multilevel degenerative disc changes OTHER: No other significant finding. IMPRESSION: Benign bilateral renal cysts. No collecting system stones. No gross urothelial lesions along the kidneys or ureters. Suboptimal contrast opacification urinary bladder on delay images. Small bladder mucosal lesion coul d be missed. TECHNICAL DOCUMENTATION: JOB ID: [id number] Quality ID # [id number]: Final reports with documentation of one or more dose reduction techniques (e.g., Au tomated exposure control, adjustment of the mA and/or kV according to patient size, use of iterative reconstruction technique) 2010 [employer]- All Rights Reserved Reading location - IP/workstation name: [email or web address]
== END ==
LOC: RAD 09:40
PROVIDERS: ATTEND Student in an Organized Health Care Education/Training Program
DX: N28.1 Cyst of kidney, acquired (principal); R31.0 Gross hematuria; Z12.5 Encounter for screening for malignant neoplasm of prostate
CPT/HCPCS: 74178; 82565

== ENCOUNTER 2020-05-04 14:49 | Emergency (ER) | payer MEDICARE, MEDICAID ==
[2020-05-04 14:57] VITALS: BP 154/62
[2020-05-04] MEDS ORDERED: HYDROCODONE/ACETAMINOPHEN 5-325 MG TABLET PO ONE (15:10)
--- NOTE | 2020-05-04 15:16 | ER Document Report ---
HPI - HPI Time Seen by Provider: 05/04/20 15:01 Pain Level: 5 Notes: 64-year-old male presents to the emergency room for a fall yesterday while he was at home. Patient states he was at the panel for the apartment, he went out to the mailbox to get the mail, on his way back into the house he tripped on this little bit, and fell on his right shoulder and right buttocks. Denies hitting his head or change in level consciousness. 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 Patient reports his pain is 5 out of 5, states he took some Tylenol yesterday with some relief. Patient also states that his son and his family is living with him and his , there is been some issues with confrontation within the house, he is hoping to find some resources for an outlet for his son to stay at shelters or different location as it is very stressful in the household are now. Patient denies any numbness or tingling down his legs. Denies any prior issues with back pain. Patient does have an appointment tomorrow with Dr. Matt Alexander, his PCP as an already established appointment. Patient does have a history of type 2 diabetes, his blood sugar today is 169, A. fib and is anticoagulated. denies fevers, chills, chest pain,palpitations, shortness of breath, dyspnea, nausea, vomiting, diarrhea, abdominal pain, hematuria,blurred vision, double vision, loss of vision, speech changes, LH, dizziness, syncope, headaches, wheezing, ST, URI, neck pain, weakness, bowel or bladder dysfunction, saddle anesthesia, numbness or tingling in bilateral upper or lower extremities equally, muscle paralysis, weakness in bilateral upper or lower extremities equally or rash. Denies IV drug use. MEDICATIONS: I agree with the patient medications as charted by the RN. ALLERGIES: I agree with the allergies as charted by the RN. PAST MEDICAL HISTORY/PAST SURGICAL HISTORY: Reviewed and agree as charted by RN. SOCIAL HISTORY: Reviewed and agree as charted by RN. FAMILY HISTORY: No significant familial comorbid conditions directly related to patient complaint EXAM: Reviewed vital signs as charted by RN. REVIEW OF SYSTEMS:reviewed vital signs by RN CONSTITUTIONAL : Denies fever, chills, or sweats. Denies recent illness. EENT: Denies eye, ear, throat, or mouth pain or symptoms. Denies nasal or sinus congestion or discharge. Denies throat, tongue, or mouth swelling or difficulty swallowing. CARDIOVASCULAR: Denies chest pain. Denies palpitations or racing or irregular heart beat. Denies ankle edema. RESPIRATORY: Denies cough, cold, or chest congestion. Denies shortness of breath, difficulty breathing, or wheezing. GASTROINTESTINAL: Denies abdominal pain or distention. Denies nausea, vomiting, or diarrhea. Denies blood in vomitus, stools, or per rectum. Denies black, tarry stools. Denies constipation. GENITOURINARY: Denies difficulty urinating, painful urination, burning, frequency, blood in urine, or discharge. MUSCULOSKELETAL: Reports right shoulder and right lower back pain. Denies back or neck pain or stiffness. Denies joint pain or swelling. SKIN: Denies rash, lesions or sores. HEMATOLOGIC : Denies easy bruising or bleeding. LYMPHATIC: Denies swollen, enlarged glands. NEUROLOGICAL: Denies confusion or altered mental status. Denies passing out or loss of consciousness. Denies dizziness or lightheadedness. Denies headache. Denies weakness or paralysis or loss of use of either side. Denies problems with gait or speech. Denies sensory loss, numbness, or tingling. Denies seizures. PSYCHIATRIC: Denies anxiety or stress. Denies depression, suicidal ideation, or homicidal ideation. ALL OTHER SYSTEMS REVIEWED AND NEGATIVE. Dictation was performed using [employer] voice recognition software PHYSICAL EXAMINATION: GENERAL: Well-appearing, well-nourished and in no acute distress. HEAD: Atraumatic, normocephalic. EYES: Pupils equal round and reactive to light, extraocular movements intact, sclera anicteric, conjunctiva are normal. ENT: Nares patent, oropharynx clear without exudates. Moist mucous membranes. NECK: Normal range of motion, supple without lymphadenopathy LUNGS: Breath sounds clear to auscultation bilaterally and equal. No wheezes rales or rhonchi. HEART: Regular rate and rhythm without murmurs ABDOMEN: Soft, nontender, nondistended abdomen. No guarding, no rebound. No masses appreciated. Musculoskeletal: Normal range of motion, no pitting or edema. No cyanosis. right shoulder pain with abduction and flexion. no pain with supination, pronation, extension. Color Coater + 2 BUE equally. APROM in shoulder. DTR +2 in BUE equally. Noted crepitus with APROM in elbow. negative drop arm, neer sign, henderson test bilaterally. slightly positive impingement sign all on right . No vascular compromise. Neck with full APROM, no cervical spinal tenderness. No tenderness over clavicles or step off noted bilaterally. Strength 5 out of 5 in bilateral upper extremities equally. Pain with flexion and extension at 30 degrees, positive straight leg test on right. Normal hip rotation. DTR +2 in BLE equally. Strength 5 out of 5 both distally and proximally to bilateral lower extremities normal motor and sensory function in BLE equally. Distal pulses + 2 BLE equally. Noted paraspinal tenderness near L2 and L3 on right. Strength 5 out of 5 in bilateral lower extremities equally. no spinal tenderness. No CVA tenderness bilaterally. Femoral pulses + 2 bilaterally and equally. No abrasions, scars, lacerations, ecchymosis of any recent trauma. normal gait. NEUROLOGICAL: Cranial nerves grossly intact. Normal speech, normal gait. Normal sensory, motor exams PSYCH: Normal mood, normal affect. SKIN: Warm, Dry, normal turgor, no rashes or lesions noted. - REPRODUCTIVE Reproductive: DENIES: : - MUSCULOSKELETAL Musculoskeletal: REPORTS: Extremity pain Past Medical History - General Information source: Patient - Social History Smoking Status: Former Smoker Chew tobacco use (# tins/day): No Frequency of alcohol use: None Drug Abuse: None Family History: Reviewed & Not Pertinent Patient has homicidal ideation: No - Past Medical History Cardiac Medical History: Reports: Hx Atrial Fibrillation, Hx Coronary Artery Disease, Hx Heart Attack, Hx Hypercholesterolemia, Hx Hypertension, Hx Peripheral Vascular Disease Endocrine Medical History: Reports: Hx Diabetes Mellitus Type 1, Hx Diabetes Mellitus Type 2 Renal/ Medical History: Denies: Hx Peritoneal Dialysis Past Surgical History: Reports: Hx Coronary Artery Bypass Graft, Hx Orthopedic Surgery - Spinal fusion, Hx Vascular Surgery, Other - A Fib ablation - Immunizations Hx Diphtheria, Pertussis, Tetanus Vaccination: Yes Vertical Provider Document - CONSTITUTIONAL Agree With Documented VS: Yes Exam Limitations: No Limitations General Appearance: WD/WN - INFECTION CONTROL TRAVEL OUTSIDE OF THE [place] IN LAST 30 DAYS: No Course - Re-evaluation Re-evalutation: 05/04/20 15:20 Afebrile vital stable no distress. Nurses notes reviewed. X-ray right shoulder and x-ray lumbar spine negative for any acute fracture dislocation or foreign bodies. Patient be placed in a right shoulder sling, prescribed patient anti- inflammatory and a muscle relaxer. Advised to not drive, drink alcohol or operate machinery while taking medication because sedation impairment cognitive function. floor service worker spring did come see patient at bedside, did offer literature regarding outlets for his son and family to live due to patient having some stress with his son and family living with him and his . Advised apply heat 20 minutes on 20 minutes off several times a day. Follow-up with hedis specialist in the next 24 to 48 hours. After performing a Medical Screening Examination, I estimate there is LOW risk for EXPANDING OR RUPTURED ABDOMINAL AORTIC ANEURYSM, CAUDA EQUINA SYNDROME, EPIDURAL MASS ABSCESS OR LESION(S), OSTEOMYELITIS,PERSONAL HISTORY OF CANCER, IMMUNOSUPPERSSSION, HISTORY OF IV DRUG USE, FRACTURE, CORD COMPERSSION, CANCER, RETROPERITONEAL BLEED, SPINAL EPIDURAL HEMATOMA, or HERNIATED DISK CAUSING SEVERE SPINAL STENOSIS, thus I consider the discharge disposition reasonable. I have reevaluated this patient multiple times and no significant life threatening changes are noted. The patient and I have discussed the diagnosis and risks, and we agree with discharging home and close follow-up. We also discussed returning to the Emergency Department immediately if new or worsening symptoms occur with the understanding that symptoms and presentations can change. We have discussed the symptoms which are most concerning (e.g., saddle anesthesia, urinary or bowel incontinence or retention, changing or worsening pain) that necessitate immediate return. - Vital Signs Vital signs: Temp Pulse Resp BP Pulse Ox 98.7 F 86 18 154/62 H 98 05/04/20 14:54 05/04/20 14:54 05/04/20 14:54 05/04/20 14:54 05/04/20 14:54 Discharge - Discharge Clinical Impression: Right shoulder pain, Lower back pain Condition: Stable Disposition: HOME, SELF-CARE Instructions: Low Back Pain ([facility]), Muscle Relaxers ([facility]), Muscle Strain ([facility]), Myalagia (Muscle Pain) ([facility]), Exercise Program for the Shoulder ([facility]), Shoulder Injury ([facility]), Stretching Exercises for the Back ([facility]) Additional Instructions: X-ray of your shoulder and of your lower back were normal. Please take anti- inflammatories, apply heat 20 minutes on 20 minutes off several times a day. You have been seen in the Emergency Department (ED) today for back pain. Your workup and exam have not shown any acute abnormalities and you are likely suffering from muscle strain or possible problems with your discs, but there is no treatment that will fix your symptoms at this time. Please take the naproxen that has been prescribed as directed. You should also purchase a local lidocaine cream such as "aspercreme with lidocaine" and use per bottle instructions to the affected area. Apply heat to the area as often as you are able. Continue to keep active and avoid prolonged periods of bed rest. Please follow up with your doctor as soon as possible regarding today's ED visit and your back pain. Return to the ED for worsening back pain, fever, weakness or numbness of either leg, or if you develop either (1) an inability to urinate or have bowel movements, or (2) loss of your ability to control your bathroom functions (if you start having "accidents"), or if you develop other new symptoms that concern you.concern you. Return immediately for any new or worsening symptoms. Follow up with primary care provider, call tomorrow to make followup appointment. Prescriptions: RX: Naproxen 500 mg PO BID #10 tablet Methocarbamol [Robaxin 500 mg Tablet] 500 mg PO QID PRN #15 tablet PRN Reason: Referrals: SUSHMA HOLLY MD [ACTIVE STAFF] - Follow up as needed VIGNESH MEADE MD [Primary Care Provider] - Follow up tomorrow (as already scheduled )
--- NOTE | 2020-05-04 16:17 | RADIOLOGY REPORT (SQ) ---
EXAM DESCRIPTION: SHOULDER RIGHT 2 OR MORE VIEWS IMAGES COMPLETED DATE/TIME: 05/04/2020 3:44 pm REASON FOR STUDY: s/p fall x1day ago, R shoulder, R lbp pain COMPARISON: None. NUMBER OF VIEWS: Three views. TECHNIQUE: Internal rotation, external rotation, and Y view images acquired of the right shoulder. LIMITATIONS: None. FINDINGS: MINERALIZATION: Normal. BONES: No acute fracture. No worrisome bone lesions. JOINTS: No dislocation. VISUALIZED LUNGS AND RIBS: No pneumothorax. No rib fracture. SOFT TISSUES: No radiopaque foreign body. OTHER: No other significant finding. IMPRESSION: NO RADIOGRAPHIC EVIDENCE OF ACUTE INJURY. TECHNICAL DOCUMENTATION: JOB ID: [id number] 2010 [employer]- All Rights Reserved Reading location - IP/workstation name: [email or web address]
--- NOTE | 2020-05-04 16:18 | RADIOLOGY REPORT (SQ) ---
EXAM DESCRIPTION: L SPINE WHOLE IMAGES COMPLETED DATE/TIME: 05/04/2020 3:44 pm REASON FOR STUDY: s/p fall x1day ago, R shoulder, R lbp pain COMPARISON: None. NUMBER OF VIEWS: Five views including obliques. TECHNIQUE: AP, lateral, oblique, and sacral radiographic images acquired of the lumbar spine. LIMITATIONS: None. FINDINGS: MINERALIZATION: Normal. SEGMENTATION: Normal. No transitional anatomy. ALIGNMENT: Normal. VERTEBRAE: Maintained height. No fracture or worrisome bone lesion. DISCS: Multilevel disc space narrowing with osteophytes. POSTERIOR ELEMENTS: Pedicles and facets are intact. No pars defect or posterior arch defects. Facet arthropathy is present. HARDWARE: None in the spine. PARASPINAL SOFT TISSUES: Calcified aorta. PELVIS: Intact as visualized. No fractures or worrisome bone lesions. SI joints intact. OTHER: No other significant finding. IMPRESSION: SPONDYLOSIS WITHOUT BONE LESION OR FRACTURE. TECHNICAL DOCUMENTATION: JOB ID: [id number] 2010 [employer]- All Rights Reserved Reading location - IP/workstation name: [email or web address]
== END 2020-05-04 16:55 | disposition home or self-care (01) ==
LOC: ER 14:49
DX: M25.511 Pain in right shoulder (principal); M54.5 Low back pain; W01.0XXA Fall on same level from slipping, tripping and stumbling without subsequent striking against object, initial encounter; Y93.89 Activity, other specified; Y92.009 Unspecified place in unspecified non-institutional (private) residence as the place of occurrence of the external cause; M47.816 Spondylosis without myelopathy or radiculopathy, lumbar region; I48.91 Unspecified atrial fibrillation; I25.10 Atherosclerotic heart disease of native coronary artery without angina pectoris; E78.00 Pure hypercholesterolemia, unspecified; E11.51 Type 2 diabetes mellitus with diabetic peripheral angiopathy without gangrene; Z95.1 Presence of aortocoronary bypass graft; Z79.01 Long term (current) use of anticoagulants; Z79.899 Other long term (current) drug therapy; Z79.82 Long term (current) use of aspirin; Z87.891 Personal history of nicotine dependence
CPT/HCPCS: 99284; 72110; 73030; A9270